=== PATIENT | female | born 1960 | race Caucasian/White ===

== ENCOUNTER 2021-06-05 06:19 | Inpatient (IN) | payer OTHER ==
[~2021-06-05] VITALS: Ht 160 cm; Wt 75.2 kg
[2021-06-05] VITALS (68 sets, daily range): BP systolic 62–177; BP diastolic 25–69
--- NOTE | ~2021-06-05 | EMS ---
[address] [address] EMS Patient Care Report Name: LISS TOLBERT Room #: 241-P ADM IN M.R.#: [id number] Admission: 06/05/21 Attend Phys: Triston Lee MD Discharge: Date of : 58 Report #: [id number] THIS REPORT FOR: //name// Report Transmitted: 06/06/2021 06:16 EMS Care Summary [facility] Incident [id number] @ 06/05/2021 05:38 Incident Location [address] [place] [address] Patient LISS TOLBERT Female, 60 Years 1960 Patient Address [address] [place] [address] Patient History Other,Chronic Obstructive Pulmonary Disease (COPD),Kidney/Renal Failure,Coronary Artery Bypass Graft (CABG),Atrial Fibrillation,Sepsis, Patient Allergies Codeine,Other drug allergy, Patient Medications Other, Chief Complaint "She became bradycardic" Disposition Transported No Lights/[place] Dispatch Reason Diabetic Problem Transported To [facility] Narrative HISTORY: Upon EMS arrival the patient was laying supine in the ED bed with [facility] [address] [place] [address] EMS Patient Care Report Name: LISS TOLBERT Room #: 241-P [facility] IN [place]#: [id number] Admission: 06/05/21 Attend Phys: Triston Lee MD Discharge: Date of : 58 Report #: [id number] staff supporting her respiratory effort via BVM. Staff stated the the patients cardiac alarm had begun to go off, they noted her HR to be in the 30's. They promptly gave her atropine and noted an improvement. They gave her a total of 2mg of atropine prior to EMS arrival. At that time staff stated the patient was unresponsive and has had an improvement in mental status and V/S since they gave atropine. Staff stated the patient had been recannulated yesterday with a 7.5 ET tube. Staff reported the patient had a CABG and became septic after the surgery over the summer and has had a decline in her health since then. Staff stated the patient became apneic and had a pale color change prior to giving atropine. They stated due to her condition she will answer yes or no questions but is confused and usually will not follow any commands. The patient was alert for the first several minutes of EMS care, she would shake her head yes or no but had difficulty speaking. After initial treatment the patient was moved to the MICU and at that time she had a decline in mental status, the patient was unable to be interviewed. Staff was unsure of the patients DNR status and could not produce documentation of a DNR. TREATMENT: V/S monitored, the patients ventilations were assisted via BVM at 15lpm of O2 prior to EMS arrival, EtCO2 filter line was placed, 4/12 lead, TEMP, the patient was moved to the cot and ventilations were not assisted due to the patient having spontaneous respiration???s at a rate of 25 and an increase in mental status, ventilations were assisted again once it was noted the patient had a decrease in respiratory effort at 15lpm of O2 with a pediatric BVM at a rate of 10 respirations a min. Due to the patients condition her PICC line was used to administer medications, 5cc of blood was drawn out of the blue port and then flushed with 5cc of NS prior to administration of medication, 0.5mg of atropine was administered IVFP, patient did not respond to atropine and remained bradycardia and hypotensive, pads were placed anterior/posterior due to the patient???s central line in the upper right chest, S47???s monitor was used to pace he patient, pacing was set at 40mA with a rate fo 70bpm, S47???s monitor gave a ???connect pads??? reading and the monitor did not pace the patient, the cable connections and pads were checked, no obvious issues could be found, cables were switched to M1144???s monitor and pacing was started at 40mA at 70bpm, miliamps were increased in increments of 10mA up to 140mA and never got capture, pacing was discontinued, norepi was hung at 10mcg/min with a drip rate of 75gtts/min, the patient responded appropriately to the medication, BG was taken en route to the ED, report was called into [facility] ED, exams were repeated. TRANSPORT: The patient was moved to the cot via sheet drag without difficulty, she was moved to the ED bed via sheet drag without incident. DESTINATION: The patient was taken to [facility] ED room 12, report was given to nursing staff. [facility] [address] [place] [address] EMS Patient Care Report Name: LISS TOLBERT K[place] Room #: 241-P [facility] IN M.R.#: [id number] Admission: 06/05/21 Attend Phys: Triston Lee MD Discharge: Date of : 58 Report #: [id number] Initial Vitals @06:14P: 59,R: 24,BP: 79/42,EtCO2: 52,SpO2: 100, @06:00P: 69,R: 30,EtCO2: 45, @05:54P: 65,R: 25,BP: 94/50,EtCO2: 46, @06:01P: 53,R: 28,BP: 69/40,EtCO2: 44,SpO2: 91, @06:02P: 48,R: 15,BP: 65/37,EtCO2: 54,SpO2: 86, @05:51P: 65,R: 12,EtCO2: 0, @05:55P: 105,R: 10,EtCO2: 43, @06:15P: 63,R: 10, @PTAP: 59,R: 12,BP: 82/63,GCS: 14,SpO2: 90,Revised Trauma: 11, @05:50P: 64,R: 25,Pain: 0/10,GCS: 14,Temp: 98.5F,SpO2: 86,AK Suspected: false Impression Cardiogenic shock Procedures @05:5012-Lead ECGResponse: UnchangedSucceeded@06:08Response: Unchanged@06:08Response: Unchanged@06:09Response: Unchanged@06:08Response: Unchanged@06:08Response: Unchanged@06:09Response: Unchanged@06:09Response: [address] [address] EMS Patient Care Report Name: LISS TOLBERT Room #: 241-P [facility] IN [place].#: [id number] Admission: 06/05/21 Attend Phys: Triston Lee MD Discharge: Date of : 58 Report #: [id number] Unchanged@06:09Response: Unchanged@06:08Response: Unchanged@06:08Response: Unchanged@06:09Response: Unchanged@PTANormal Saline (.9% NaCl) 5cc () Site: Other Central (PICC, Portacath, Not Listed)Response: Unchanged@06:05Atropine - 0.5 Milligrams (mg) - Intravenous (IV)Response: Unchanged@06:10Norepinephrine - 10 Micrograms (mcg) - Intravenous (IV)Response: Improved@06:07Response: Unchanged@PTAOxygen FlowRate: 15 Device: Bag Valve Mask (BVM) Response: ImprovedSucceeded@05:58Oxygen FlowRate: 15 Device: Bag Valve Mask (BVM) Response: ImprovedSucceeded Timeline EVENT SECURITY OFFICER,Normal Saline (.9% NaCl) 5cc Site: Other Central (PICC, Portacath, Not Listed),Response: Unchanged EVENT SECURITY OFFICER,Oxygen FlowRate: 15 Device: Bag Valve Mask (BVM) Response: ImprovedSucceeded, EVENT SECURITY OFFICER,BP: 82/63 M,PULSE: 59,RR: 12 R,SPO2: 90 Ox,ETCO2: ,BG: ,PAIN: ,GCS: 14, 05:35,Call Received 05:35,Psap Call 05:38,Dispatched 05:39,En Route 05:45,On Scene 05:47,At Patient 05:50,12-Lead ECG,Response: UnchangedSucceeded, 05:50,BP: / M,PULSE: 64,RR: 25 R,SPO2: 86 Ox,ETCO2: ,BG: ,PAIN: 0,GCS: 14, 05:51,BP: / M,PULSE: 65,RR: 12 R,SPO2: Ox,ETCO2: 0 ,BG: ,PAIN: ,GCS: , 05:54,BP: 94/50 M,PULSE: 65,RR: 25 R,SPO2: Ox,ETCO2: 46 ,BG: ,PAIN: ,GCS: , 05:55,BP: / M,PULSE: 105,RR: 10 R,SPO2: Ox,ETCO2: 43 ,BG: ,PAIN: ,GCS: , 05:58,Oxygen FlowRate: 15 Device: Bag Valve Mask (BVM) Response: ImprovedSucceeded, 06:00,BP: / M,PULSE: 69,RR: 30 R,SPO2: Ox,ETCO2: 45 ,BG: ,PAIN: ,GCS: , 06:01,BP: 69/40 M,PULSE: 53,RR: 28 R,SPO2: 91 Ox,ETCO2: 44 ,BG: ,PAIN: ,GCS: , 06:02,BP: 65/37 M,PULSE: 48,RR: 15 R,SPO2: 86 Ox,ETCO2: 54 ,BG: ,PAIN: ,GCS: , 06:04,Depart Scene 06:05,Atropine - 0.5 Milligrams (mg) - Intravenous (IV),Response: Unchanged 06:07,Response: Unchanged 06:08,Response: Unchanged 06:08,Response: Unchanged 06:08,Response: Unchanged 06:08,Response: Unchanged 06:08,Response: Unchanged 06:08,Response: Unchanged 06:09,Response: Unchanged 06:09,Response: Unchanged 06:09,Response: Unchanged 06:09,Response: Unchanged 06:09,Response: Unchanged 06:10,Norepinephrine - 10 Micrograms (mcg) - Intravenous (IV),Response: Improved [facility] [address] [place] [address] EMS Patient Care Report Name: LISS TOLBERT Room #: 241-P ADM IN M.Otilio.#: [id number] Admission: 06/05/21 Attend Phys: Triston Lee MD Discharge: Date of : 58 Report #: [id number] 06:14,BP: 79/42 M,PULSE: 59,RR: 24 R,SPO2: 100 Ox,ETCO2: 52 ,BG: ,PAIN: ,GCS: , 06:15,BP: / M,PULSE: 63,RR: 10 R,SPO2: Ox,ETCO2: ,BG: ,PAIN: ,GCS: , 06:15,At Destination 06:56,Call Closed Disclaimer v1.1 Copyright 2020 [employer] This EMS Care Summary contains data elements from the applicable legal record (which may be displayed differently). It is designed to provide pertinent information for the following purposes: continuity of care, clinical quality, and state data reporting. The complete legal record is available to ED staff and administrators of the receiving hospital in [facility]'s Patient Tracker. All data is provided "as is."
[2021-06-05 06:48] LABS: WBC 5.1 thou/uL (4.0-11.0)
[2021-06-05 06:49] LABS: CALCIUM 8.4 mg/dL (8.5-10.1); CREATININE 2.5 mg/dL (0.6-1.0); MCH 32.5 pg (26.0-34.0); MCV 98.6 fL (80.0-100.0); POTASSIUM 3.8 mmol/L (3.5-5.1); RBC 1.92 mil/uL (4.20-5.00); RDW 19.1 % (10.5-14.5)
[2021-06-05 06:55] LABS: HEMATOCRIT 18.9 % (37.0-47.0); HEMOGLOBIN 6.2 gm/dL (12.0-15.0)
[2021-06-05 07:06] LABS: BE(vivo) 4.7 mmol/L (-2 to +3); HCO3 32.8 mmol/L (22.0-26.0); sO2 70.4 % (92.0-98.0)
[2021-06-05 07:08] LABS: PCO2 80.6 mmHg (35.0-45.0); PO2 45.2 mmHg (80.0-100.0); pH 7.228 (7.360-7.450)
[2021-06-05 08:13] LABS: URINE BLOOD TRACE (Negative); URINE CLARITY CLOUDY; URINE GLUCOSE-RANDOM* NEGATIVE (Negative); URINE KETONES TRACE (Negative); URINE PROTEIN (DIPSTICK) 2+ (Negative)
[2021-06-05 08:16] LABS: ICTOTEST (BILI CONFIRMATORY) Negative (Negative); URINE BILIRUBIN NEGATIVE (Negative); URINE COLOR AMBER; URINE LEUKOCYTES-REFLEX 2+ (Negative); URINE NITRITE-REFLEX POSITIVE (Negative)
[2021-06-05 08:59] LABS: SQUAMOUS 4-10 Moderate /LPF (0-3)
[2021-06-05 09:00] LABS: CASTS None Seen /LPF (None Seen); CRYSTALS None Seen /LPF (None Seen)
[2021-06-05 09:01] LABS: BACTERIA-REFLEX >30 Many /HPF (None Seen); URINE RBC 3-10 Few /HPF (NONE SEEN); URINE WBC-REFLEX >25 Many /HPF (0-5)
[2021-06-05 09:53] LABS: ABSOLUTE NEUTROPHILS 4.3 thou/uL (1.4-8.2); ANISOCYTOSIS 2+
[2021-06-05 09:54] LABS: PLATELET COUNT 75 thou/uL (150-400)
--- NOTE | 2021-06-05 10:13 | NUR ---
VAT ROUNDING ON NEW ADMIT,PICC DRG INTACT DATED 05/31/21. RIGHT CHEST DIALYSIS CATH DATED 04/02/21 WITH MODERATE DEVAN OLD DRIED BLOOD, DRG CHG'D WITH STERILE TECHNIQUE. SITE VERY RED NO DRAINAGE NOTED MODERATE AMT DRIED BLOOD CLEANED FROM SITE. SPOKE WITH PRIMARY RN TO LET MD KNOW ABOUT DATE OF DRG AND SITE APPEARANCE
[2021-06-05 11:29] LABS: BE(vivo) 3.3 mmol/L (-2 to +3); HCO3 28.7 mmol/L (22.0-26.0); PCO2 48.6 mmHg (35.0-45.0); PO2 385.2 mmHg (80.0-100.0); pH 7.389 (7.360-7.450); sO2 99.8 % (92.0-98.0)
[2021-06-05] MEDS ORDERED: PROSOURCE NO CA30 ML PO (12:51)
[2021-06-05] MEDS ORDERED: ASPIRIN EC81 M1 PER TUBE (12:54)
[2021-06-05] MEDS ORDERED: LIPITOR80 MG PER TUBE (12:56)
[2021-06-05] MEDS ORDERED: CARVEDILOL3.125 MG PER TUBE (12:57)
[2021-06-05] MEDS ORDERED: ZETIA10 MG PO (12:59)
[2021-06-05] MEDS ORDERED: FAMOTIDINE 10 M10 MG PO (12:59)
[2021-06-05] MEDS ORDERED: HEPARIN 50500 UNIT/5 SUBQ (13:01)
[2021-06-05] MEDS ORDERED: NOVOLOG100 UNIT/1 SUBQ (13:02)
[2021-06-05] MEDS ORDERED: LEVEMIR100 UNIT/1 SUBQ (13:03)
[2021-06-05] MEDS ORDERED: ONDANSETRON4 MG/2 ML IV PUSH (13:06)
[2021-06-05] MEDS ORDERED: PERCOCET 5-3251 EACH PO (13:07)
[2021-06-05] MEDS ORDERED: ROXICODONE5 M2 PO (13:08)
--- NOTE | 2021-06-05 13:55 | NUR ---
Called Dr. Lee to inform him of CT results. Consult call to Dr. Ch at [phone].
[2021-06-05 14:59] LABS: BE(vivo) 2.9 mmol/L (-2 to +3); HCO3 29.5 mmol/L (22.0-26.0); PCO2 58.7 mmHg (35.0-45.0); PO2 65.9 mmHg (80.0-100.0); pH 7.319 (7.360-7.450); sO2 90.9 % (92.0-98.0)
[2021-06-05 15:06] LABS: HEMATOCRIT 17.3 % (37.0-47.0); HEMOGLOBIN 5.6 gm/dL (12.0-15.0)
--- NOTE | 2021-06-05 15:33 | EKG ---
[address] [address] ELECTROCARDIOGRAM REPORT Name: LISS TOLBERT Room #: 241-P ADM IN M.R.#: [id number] Admission: 06/05/21 Attend Phys: Triston Lee MD Discharge: Date of : 58 Report #: [id number] [facility] ED Test Date: 2021-06-05 Test Time: 06:33:32 Pat Name: LISS TOLBERT Department: Room: 241 Gender: F Nurse Substance Abuse: unknown : 1960 Requested By: Katherine Hughes Order Number: [id number] MD: Ike Ordoñez Measurements Intervals [place] Rate: 60 P: LA: QRS: 97 QRSD: 113 T: 219 QT: 470 QTc: 470 Interpretive Statements NSR Probable anterior infarct, age indeterminate No previous ECG available for comparison Electronically Signed On 06-05-2021 15:32:54 CDT by Ike Ordoñez [email or web address] <ELECTRONICALLY SIGNED> By: Ike Ordoñez MD, FACC 06/05/21 1532 0633 2 Ike Ordoñez MD, FACC /EPI
--- NOTE | 2021-06-05 15:34 | EKG ---
[address] [address] ELECTROCARDIOGRAM REPORT Name: LISS TOLBERT Room #: 241- ADM IN M.R.#: [id number] Admission: 06/05/21 Attend Phys: Triston Lee MD Discharge: Date of : 58 Report #: [id number] [facility] Test Date: 2021-06-05 Test Time: 15:00:32 Pat Name: LISS TOLBERT Department: Room: 241 P Gender: F Quality Measurement Specialist: RAUL : 1960 Requested By: Triston Lee Order Number: [id number] MD: Ike Ordoñez Measurements Intervals [place] Rate: 115 P: 90 MD: 151 QRS: -6 QRSD: 112 T: -49 QT: 263 QTc: 364 Interpretive Statements Sinus tachycardia Atrial premature complexes Consider right atrial enlargement Anterior infarct, old Compared to ECG 06/05/2021 06:33:32 Atrial premature complex(es) now present Junctional rhythm no longer present Myocardial infarct finding still present Electronically Signed On 06-05-2021 15:34:20 CDT by Ike Ordoñez [email or web address] <ELECTRONICALLY SIGNED> By: Ike Ordoñez MD, FACC 06/05/21 1534 1500 1500 Ike Ordoñez MD, FAC /EPI
--- NOTE | 2021-06-05 15:50 | NUR ---
CRITICAL RESULT FOR H/H RECEIVED FROM LAB AT 1505, RN REPORTED TO THE ROOM, THREE PHYSICIANS, , , PRESENT. PRIMARY RN PRESENT IN ROOM, RN LATER VERIFIFED BLOOD PRODUCT WELL
--- NOTE | 2021-06-05 16:03 | NUR ---
VAT CONSULTED FOR CVAD BY DR CRAWFORD, DR ESCOBEDO AT BEDSIDE READY TO PLACE LINE.
[2021-06-05 16:09] LABS: CALCIUM 7.5 mg/dL (8.5-10.1); CREATININE 2.5 mg/dL (0.6-1.0); MAGNESIUM 1.9 mg/dL (1.8-2.4)
[2021-06-05 16:13] LABS: POTASSIUM 2.8 mmol/L (3.5-5.1)
[2021-06-05 16:21] LABS: MCH 32.2 pg (26.0-34.0); MCHC 32.5 % (28.0-37.0); MCV 99.1 fL (80.0-100.0); RBC 1.75 mil/uL (4.20-5.00); WBC 6.1 thou/uL (4.0-11.0)
[2021-06-05 16:22] LABS: PLATELET COUNT 83 thou/uL (150-400); RDW 19.3 % (10.5-14.5)
--- NOTE | 2021-06-05 17:00 | NUR ---
Chart review. Dx: Cardiogenic shock. She was came to ED from [facility]. She has been there off and on since her cardiac surgery at [facility] in march 2021, then had to go back to hospital. Infected inision. Dialysis on MWF. Prior to Hospitals she live at home with her , independent when feeling ok. Manage own medication. Has trach and was on room air prior to being sent here. On the [facility] of [facility]. Code called yesterday here while she in the ICU. Will cont following as needed for dc needs. Called spouse, no answer and no voice mail to leave a message.
--- NOTE | 2021-06-05 17:03 | NUR ---
THIS HAND BOBBIN CLEANER PROVIDED FAMILY SUPPORT TO THE PATIENT'S , MARY, DURING AND AFTER THE CODE BLUE. A VERY DIFFICULT SITUATION. fAMILY LIVES NEAR [place], [place]. BROTHER, A LOGISTICS LEAD, OF MARY IS COMING TO PROVIDE SUPPORT FROM NELLIE PEREA.. I NOTIFIED SECURITY AND NURSING BOWLING BALL ASSEMBLER THAT THEY WOULD BE NEAR AUDITORIUM.
[2021-06-05 17:16] LABS: APTT 42.1 Seconds (24.5-32.8); INR 1.28; PROTIME 13.8 Seconds (10.5-12.1)
--- NOTE | 2021-06-05 17:56 | NUR ---
VAT RECONSULTED TO REPLACE DL WITH TL PICC. DISCUSSED WITH MARKETING RECRUITER'S THAT PICC WAS THERE ON ADMISSION ,ON THE RIGHT SIDE THE TEMPORARY DIALYSIS CATH. SO UNABLE TO DO OTW. LEFT SC LINE PLACED BY DR ESCOBEDO. IF FURTHER ACCESS NEEDED EITHER PIV'S OR PT NEEDS IR INTERVENTION. ADEQUATE ACCESS AT PRESENT
[2021-06-05 18:14] LABS: ABSOLUTE NEUTROPHILS 5.6 thou/uL (1.4-8.2); ANISOCYTOSIS 1+
--- NOTE | 2021-06-05 20:03 | NUR ---
ASSUMED CARE OF PATIENT AT 1845. PRBS INITATED WITH DAY SHIFT RNFaina GUERRERO NOTIFIED ABOUT CRITICAL TROPONINS AND LACTIC ACID. RECIEVED ORDERS FOR SLIDING SCALE INSULIN AND MARY SHOULD IT BE NEEDED FOR ADDITIONAL BLOOD PRESSURE SUPPORT.
--- NOTE | 2021-06-05 20:31 | NUR ---
Patient is not progressing towards goal. Patient arrived to ICU at 1000 on epi gtt for HR and BP. Informed MD Lee and MD Rea of patients CT results, orders were recieved, read back and placed. Consulted cardiothoracic surgery, no orderes given. At 1440 patient became bradycardic and O2 began to decrease, patient become PEA. ROSC was recieved Nolan Murillo Hura at bedside. Dr. Rea placed L radial A-line and L subclavian triple lumen. Dr. Murillo was consulted for left chest drain. IR team came to bedside, 1350mL was drained from patients left chest and drain was placed. Per Dr. Murillo it is okay to use left subclavian TLC for medications other than pressors, Dr. Rea made aware. All Doctors involved in this patients care have been notified of critical results, code blue, and current IV medications. made aware of code blue and was at bedside. Consent for drain placement was recieved by Dr. Francisco, all of Mr. Gaines's questions and concerns were addressed.
--- NOTE | 2021-06-05 20:41 | NUR ---
Rona Chapa and Jesus aware of patient critical labs at 1510 in room at bedside with patient.
[2021-06-05 21:25] LABS: HEMOGLOBIN 8.1 gm/dL (12.0-15.0)
[2021-06-05 21:26] LABS: CREATININE 2.9 mg/dL (0.6-1.0); MAGNESIUM 2.5 mg/dL (1.8-2.4); POTASSIUM 3.5 mmol/L (3.5-5.1)
[2021-06-06] VITALS (32 sets, daily range): BP systolic 67–156; BP diastolic 10–50
[2021-06-06 02:31] LABS: ABSOLUTE NEUTROPHILS 5.6 thou/uL (1.4-8.2); BASOPHILS 0.2 % (0.0-2.0); EOSINOPHILS 0.8 % (0.0-3.0); HEMATOCRIT 24.3 % (37.0-47.0); HEMOGLOBIN 8.1 gm/dL (12.0-15.0); LYMPHOCYTES 0.8 % (24.0-44.0); MCH 31.5 pg (26.0-34.0); MCHC 33.1 g/dL (28.0-37.0); MONOCYTES 1.9 % (1.0-8.0); PLATELET COUNT 75 thou/uL (150-400); POLYS 96.3 % (36.0-66.0); RBC 2.56 mil/uL (4.20-5.00); RDW 19.6 % (10.5-14.5); WBC 5.8 thou/uL (4.0-11.0)
[2021-06-06 02:43] LABS: ALBUMIN 1.7 g/dL (3.4-5.0); CALCIUM 8.4 mg/dL (8.5-10.1); CREATININE 3.1 mg/dL (0.6-1.0); MAGNESIUM 2.4 mg/dL (1.8-2.4); POTASSIUM 3.5 mmol/L (3.5-5.1); TOTAL PROTEIN 5.7 g/dL (6.4-8.2)
[2021-06-06 05:06] LABS: BE(vivo) 5.8 mmol/L (-2 to +3); HCO3 31.8 mmol/L (22.0-26.0); PCO2 55.2 mmHg (35.0-45.0); PO2 78.5 mmHg (80.0-100.0); pH 7.378 (7.360-7.450); sO2 95.1 % (92.0-98.0)
--- NOTE | 2021-06-06 07:32 | NUR ---
ORDERS RECEIVED FOR EVAL AND TREAT HOWEVER Pt HAD CODE BLUE. WILL PLACE ON HOLD AND AWAIT NEW ORDERS WHEN APPROPRIATE
--- NOTE | 2021-06-06 07:34 | NUR ---
VARIANCE NOTE: ORDERS RECEIVED FOR O.T. EVAL AND TREAT. PT HAD CODE BLUE PRIOR AFTERNOON. WILL PLACE PT ON HOLD AND AWAIT NEW ORDERS.
--- NOTE | 2021-06-06 08:30 | NUR ---
BEDSIDE ECHO IN PROGRESS.
--- NOTE | 2021-06-06 09:27 | 2DMMODE ---
[facility] [place] [address] 2 D/M-MODE ECHOCARDIOGRAM Name: LISS TOLBERT Room #: 241-P ADM IN M.R.#: [id number] Admission: 06/05/21 Attend Phys: Triston Lee MD Discharge: Date of : 58 Report #: [id number] THIS REPORT FOR: cc: FAM - Family physician unknown FAM - Family physician unknown Ike Ordoñez MD [facility] ~ APPROVED REPORT Study performed: 06/06/2021 08:05:51 EXAM: Comprehensive 2D, Doppler, and color-flow Echocardiogram Patient Location: ICU Room #: 241 Status: routine BSA: 1.63 HR: 130 bpm BP: 79/44 mmHg Rhythm: Atrial Fibrillation Other Information Study Quality: Good/patient on vent Indications Bradycardia. S/P code X2. Hx: CABG, AVR, COPD. 2D Dimensions RVDd: 37.69 mm IVSd: 11.35 (7-11mm) LVDd: 53.15 mm PWd: 10.63 (7-11mm) Ascending Ao: 31.47 (22-36mm) LVDs: 45.84 (25-40mm) Left Atrium: 48.87 (27-40mm) Aortic Root: 23.80 mm Volumes Left Atrial Volume (Systole) Single Plane 4CH: 63.84 mL Single Plane 2CH: 91.35 mL LA ESV Index: 50.00 mL/m2 Aortic Valve AoV Peak Case.: 2.60 m/s AO Peak Gr.: 28.00 mmHg LVOT Max P.85 mmHg AO Mean Gr.: 17.00 mmHg [facility] [address] [place] [address] 2 D/M-MODE ECHOCARDIOGRAM Name: LISS TOLBERT Room #: 241-P [facility]#: [id number] Admission: 06/05/21 Attend Phys: Triston eLe MD Discharge: Date of : 58 Report #: [id number] AO V2 Mean: 2.09 m/s LVOT Max V: 0.98 m/s AO V2 VTI: 34.00 cm Pulmonary Valve PV Peak Case.: 1.12 m/s PV Peak Gr.: 4.98 mmHg Tricuspid Valve TR Peak Case.: 2.79 m/s RAP Estimate: 15.00 mmHg TR Peak Gr.: 31.41 mmHg PA Pressure: 45.00 mmHg Left Ventricle The left ventricle is normal size. There is normal left ventricular wall thickness. Left ventricular systolic function is severely decreased. LVEF is 25-30%. This study is not technically sufficient to allow evaluation of the LV diastolic function. Right Ventricle Right ventricle is hypokinetic. Atria Left atrium is severely dilated. The right atrium size is normal. Aortic Valve History of aortic valve replacement (manufacture and size unknown). Peak gradient through the valve is 28mmHg and mean of 17mmHg. Trace aortic regurgitation. Mitral Valve There is mitral annular calcification. Mitral valve leaflets are thickened. Mild mitral regurgitation. No evidence of mitral valve stenosis. Tricuspid Valve The tricuspid valve is normal in structure. Moderate tricuspid regurgitation. Estimated PAP is 45mmHg. Pulmonic Valve The pulmonary valve is normal in structure. Mild pulmonic regurgitation. Great Vessels The aortic root is normal in size. The ascending aorta is normal in size. IVC is dilated and collapses <50% with inspiration. [facility] [place] [address] 2 D/M-MODE ECHOCARDIOGRAM Name: LISS TOLBERT Room #: 241-P [facility] IN M.R.#: [id number] Admission: 06/05/21 Attend Phys: Triston Lee MD Discharge: Date of : 58 Report #: [id number] Pericardium There is no pericardial effusion. <Conclusion> Normal left ventricle size/wall thickness Global hypokinesis ejection fraction 25-30% Right ventricle: Normal in size/hypokinetic Severe left atrial enlargement History of aortic valve replacement/appears to be bioprosthetic valve mean gradient of 17 mmHg Mild mitral annular calcification Mild mitral valve insufficiency Moderate tricuspid valve insufficiency Pulmonary systolic pressure estimated 45 mmHg No pericardial effusion Normal aortic root size <ELECTRONICALLY SIGNED> By: Ike Ordoñez MD, [facility] 06/06/21926 6 6 Ike Ordoñez MD, FACC /INF
--- NOTE | 2021-06-06 11:10 | NUR ---
CONVERTED FROM A FIB TO NSR
--- NOTE | 2021-06-06 12:00 | NUR ---
DR RODRIGUEZ IN TO SPEAK WITH THE PATIENT'S FAMILY CONCERNING THE POC. ORDERS NOTED.
--- NOTE | 2021-06-06 12:06 | NUR ---
VAT CONSULTED FOR TL PICC MORE ACCESS NEEDED. L SC NOT IN PROPER PLACEMENT. ROSY BRACHIAL WAS WIDELY PATENT WITH USG. 5FR TL POWER PICC TRIMMED TO 47CM INSERTED TO 2CM EXTERNAL PLACEMENT CONFIRMED WITH 3CG. SHERLOCK USED FOR DIFFICULT DROP OF LINE. PICC RELEASED FOR IMMEDIATE USE PER PROTOCOL
--- NOTE | 2021-06-06 19:45 | NUR ---
PATIENT REMAINS CRITICAL, AND NOT PROGRESSING TOWARDS OUTCOME GOALS. FENTANYL WEANED OFF AND EPI ALSO. MEAN ART PRESSURE 55 TO 58 MMHG. PLEASE REFER TO ASSESSMENTS.
[2021-06-07] VITALS (46 sets, daily range): BP systolic 90–159; BP diastolic 20–63
[2021-06-07 05:15] LABS: HEMATOCRIT 22.6 % (37.0-47.0); HEMOGLOBIN 7.5 gm/dL (12.0-15.0)
[2021-06-07 06:38] LABS: ALBUMIN 1.6 g/dL (3.4-5.0); CALCIUM 7.8 mg/dL (8.5-10.1); CREATININE 3.4 mg/dL (0.6-1.0); PHOSPHORUS 2.9 mg/dL (2.5-4.9)
--- NOTE | 2021-06-07 07:03 | NUR ---
NO ACUTE EVENTS OVERNIGHT. WEANED PRESSORS AND SEDATION TOLERATED.
--- NOTE | 2021-06-07 07:04 | NUR ---
LATE ENTRY FOR 06/05/21 ~1700-WHILE IN ROOM PT BECAME UNRESPONSIVE (HAD BEEN ALERT,TALKING AROUND TRACH,VERY RESTLESS).COLOR ASHEN-NO PULSE.PT IN PEA.CPR STARTED IMMED & CODE BLUE CALLED. ROSC WAS ACHIEVED. PT WENT INTO VFIB SHORT TIME p x 2 SEPERATE EVENTS W IMMED RETURN TO ROSC p DEFIB. ST W PULSE PRESENT. SEE CODE BLUE SHEETS.PHYSICIANS PRESENT DURING ENTIRE EVENTS. IN TO SEE PT BRIEFLY W SCREW MACHINE SETTER PRESENT.MUCH EMO SUPPORT GIVEN.--VW
--- NOTE | 2021-06-07 07:45 | NUR ---
Spoke with Dr. Simmons regarding POC informed him that Dr. Mayorga suggest removing right dialysis cath. MD stated he will speak with family. Spoke with Dr. Ordoñez, per keep amio at 1 mg/min for additional 24hrs.
[2021-06-07 09:23] LABS: BE(vivo) 2.5 mmol/L (-2 to +3); HCO3 28.5 mmol/L (22.0-26.0); PCO2 51.2 mmHg (35.0-45.0); pH 7.364 (7.360-7.450); sO2 94.8 % (92.0-98.0)
[2021-06-07 11:21] LABS: LIPASE < 10 U/L (73-393)
--- NOTE | 2021-06-07 12:13 | NUR ---
Spoke with Dr. Rea regarding patients left cheswt appearance, no orders given at this time. Will continue to monitor. Okay to restart fentanyl for pain control
--- NOTE | 2021-06-07 15:07 | NUR ---
Spoke with GUNJAN Dawkins and informed her that patient heart rate dropped into 50s, amiodarone placed on standby. Currently sinus bradycardia. SUPERSONIC ENGINEER aware of critical troponin as well. No orders at this time.
--- NOTE | 2021-06-07 18:54 | NUR ---
Patient is not progressing towards goal. Patient is still requiring high dose of pressors for blood pressure support. Amiodarone turned off due to bradycardia. Left chest appearance is distended and soft, drain output 120mL for my shift. MD is aware of changes. Spoke with Zhang today, all his questions and concerns were address. Sister in law Padmaja came by to see patient, all of her questions and concerns were address. Plan for 06/08/21 is to replace dialysis catheter and start dialysis.
[2021-06-07 21:13] LABS: HEMATOCRIT 21.8 % (37.0-47.0); HEMOGLOBIN 7.1 gm/dL (12.0-15.0); MCH 30.4 pg (26.0-34.0); MCHC 32.4 g/dL (28.0-37.0); MCV 93.8 fL (80.0-100.0); RBC 2.33 mil/uL (4.20-5.00); RDW 19.8 % (10.5-14.5)
[2021-06-07 21:17] LABS: WBC 22.2 thou/uL (4.0-11.0)
--- NOTE | 2021-06-07 21:55 | NUR ---
ASSUMED CARE OF PATIENT AT 1900. PATIENT CONTINUES TO BE HYPOTENSIVE AND BRADYCARDIC. EPI RESUMED. DR RODRIGUEZ UPDATED AT 2144. ORDERS FOR ALBUMIN, FLUID BOLUS AND DOPAMINE OBTAINED. REMINDED DR RODRIGUEZ THAT THE LAST TIME PATIENT WAS ON DOPAMINE SHE WENT INTO V-FIB. HE FEELS THAT SHE WILL BE FINE AND WANTS THE PATIENT ON DOPAMINE. PATIENT NOT PROGRESSING TOWARDS POC GOALS.
[2021-06-08] VITALS (45 sets, daily range): BP systolic 99–143; BP diastolic 37–62
[2021-06-08 05:52] LABS: HEMOGLOBIN 7.6 gm/dL (12.0-15.0); MCHC 33.1 g/dL (28.0-37.0); MCV 93.8 fL (80.0-100.0); PLATELET COUNT 25 thou/uL (150-400); RBC 2.45 mil/uL (4.20-5.00); RDW 20.1 % (10.5-14.5); WBC 18.9 thou/uL (4.0-11.0)
[2021-06-08 06:24] LABS: ALBUMIN 1.7 g/dL (3.4-5.0); CALCIUM 7.6 mg/dL (8.5-10.1); CREATININE 3.4 mg/dL (0.6-1.0); MAGNESIUM 2.2 mg/dL (1.8-2.4); POTASSIUM 3.6 mmol/L (3.5-5.1); TOTAL PROTEIN 5.2 g/dL (6.4-8.2)
[2021-06-08 06:51] LABS: ABSOLUTE NEUTROPHILS 18.5 thou/uL (1.4-8.2)
[2021-06-08 06:52] LABS: ANISOCYTOSIS 2+; PLATELET ESTIMATE MARKEDLY DECREASED; POIKILOCYTOSIS 1+
[2021-06-08 08:57] LABS: INR 1.17; PROTIME 12.7 Seconds (10.5-12.1)
--- NOTE | 2021-06-08 14:21 | NUR ---
Discussed during unit rounds and los with the hospitalist. trach, with vent support. nutritional support. Family has been updated from the hospitalist. Possible will have dialysis today. No anticipated dc, and no anticipated dc over the weekend. Will cont. following as needed.
[2021-06-08 18:52] LABS: CALCIUM 7.2 mg/dL (8.5-10.1); POTASSIUM 3.4 mmol/L (3.5-5.1)
[2021-06-08 21:20] LABS: HEMATOCRIT 23.5 % (37.0-47.0); HEMOGLOBIN 7.7 gm/dL (12.0-15.0); MCH 30.6 pg (26.0-34.0); MCHC 32.8 g/dL (28.0-37.0); MCV 93.4 fL (80.0-100.0); RBC 2.52 mil/uL (4.20-5.00); WBC 20.6 thou/uL (4.0-11.0)
[2021-06-09] VITALS (21 sets, daily range): BP systolic 107–146; BP diastolic 33–54
[2021-06-09 04:45] LABS: BE(vivo) 3.4 mmol/L (-2 to +3); HCO3 27.3 mmol/L (22.0-26.0); PCO2 38.2 mmHg (35.0-45.0); PO2 78.3 mmHg (80.0-100.0); pH 7.472 (7.360-7.450); sO2 96.3 % (92.0-98.0)
[2021-06-09 05:24] LABS: HEMOGLOBIN 6.8 gm/dL (12.0-15.0)
[2021-06-09 05:26] LABS: HEMATOCRIT 20.1 % (37.0-47.0); MCH 31.6 pg (26.0-34.0); MCV 92.9 fL (80.0-100.0); RBC 2.16 mil/uL (4.20-5.00); RDW 19.5 % (10.5-14.5); WBC 16.3 thou/uL (4.0-11.0)
[2021-06-09 05:42] LABS: ALBUMIN 1.8 g/dL (3.4-5.0); CALCIUM 7.6 mg/dL (8.5-10.1); MAGNESIUM 1.8 mg/dL (1.8-2.4); POTASSIUM 3.4 mmol/L (3.5-5.1); TOTAL PROTEIN 5.3 g/dL (6.4-8.2)
[2021-06-09 09:08] LABS: HEPATITIS B SURFACE AG Negative (Negative)
--- NOTE | 2021-06-09 16:12 | NUR ---
POSITIVE BLOOD CULTURES CALLED BY LAB. GRAM POSITIVE COCCI - THIS RN PAGED DR. GRAY TO NOTIFIY OF POSITIVE CULTURES.
--- NOTE | 2021-06-09 17:18 | NUR ---
ASSUMED CARE OF PATIENT AT 0600. VENT SETTINGS WERE 16/450/.50 +5. DURING MY SHIFT I WAS ABLE TO WEAN HER FIO2 TO 40% AND SHE IS TOLERATING WELL. HER SATURATION HAS REMAINED ANYWHERE FROM 98-100% WITH THE CHANGE. SHE HAS GOTTEN ALL OF BREATHING TREATMENT AND SHOWING NO SIGNS OF DISTRESS.
[2021-06-09 18:06] LABS: HEMOGLOBIN 8.1 gm/dL (12.0-15.0)
[2021-06-09 18:09] LABS: HEMATOCRIT 24.4 % (37.0-47.0); OBSERVED RETIC COUNT 0.64 % (0.6-2.6)
[2021-06-09 18:26] LABS: % SATURATION 65 % (20-39); IRON 79 ug/dL (50-170); TIBC 122 ug/dL (250-450)
[2021-06-09 19:27] LABS: FOLIC ACID 10.4 ng/mL (8.6-58.9)
--- NOTE | 2021-06-09 19:38 | NUR ---
ASSUMED CARE OF PATIENT AT 1330. TITRATED LEVOPHED FROM 5MCG TO 3 MCG. REMAINS ON FENTANYL AND VERSED FOR LIGHT SEDATION. PATIENT MOVING ARMS AND OPENS EYES AT TIME, DOES NOT FOLLOW COMMANDS. SINUS ADELA ON THE MONITOR. 1 UNIT PLT AND 1 UNIT PRBC INFUSED. HGB 8.1 POST. L-RADIAL AMARILIS INTACT. TUBE FEEDINGS INFUSING AT 10CC/HR. 250 Q6HR WATER FLUSHES. 35CC RESUIDUAL NOTED. WILL CONTINUE TO FOLLOW POC.
[2021-06-10] VITALS (26 sets, daily range): BP systolic 116–149; BP diastolic 37–53
[2021-06-10 03:25] LABS: INR 1.08; PROTIME 11.7 Seconds (10.5-12.1)
[2021-06-10 03:27] LABS: MCV 90.7 fL (80.0-100.0)
[2021-06-10 03:29] LABS: HEMATOCRIT 24.5 % (37.0-47.0); HEMOGLOBIN 8.2 gm/dL (12.0-15.0); MCH 30.4 pg (26.0-34.0); MCHC 33.5 g/dL (28.0-37.0); RBC 2.71 mil/uL (4.20-5.00); WBC 14.8 thou/uL (4.0-11.0)
[2021-06-10 03:34] LABS: ALBUMIN 1.7 g/dL (3.4-5.0); CALCIUM 7.8 mg/dL (8.5-10.1); CREATININE 2.4 mg/dL (0.6-1.0); POTASSIUM 3.8 mmol/L (3.5-5.1); TOTAL BILIRUBIN 0.8 mg/dL (0.2-1.0); TOTAL PROTEIN 5.5 g/dL (6.4-8.2)
[2021-06-10 04:55] LABS: BE(vivo) 1.1 mmol/L (-2 to +3); HCO3 24.4 mmol/L (22.0-26.0); pH 7.486 (7.360-7.450)
--- NOTE | 2021-06-10 08:25 | HC ---
[facility] [place] [address] CONSULTATION Name: LISS TOLBERT Room #: 241-P ADM IN M.R.#: [id number] Admission: 06/05/21 Attend Phys: Triston Lee MD Discharge: Date of : 58 Report #: [id number] THIS REPORT FOR: cc: FAM - Family physician unknown FAM - Family physician unknown Edwin Hughes MD ~ cc: Salazar Mayorga MD, Po Wiley MD [facility], Valery Valladares MD REQUESTING PHYSICIAN: Dr. Triston Lee. REASON FOR CONSULTATION: Thrombocytopenia. HISTORY OF PRESENT ILLNESS: The patient is a 60-year-old female with a complex history that evidently began this summer with CABG and aortic valve replacement at [facility]. Unfortunately, she developed a sternal wound. According to the chart, has been in LTACs, back to the hospital at [facility] and LTACs, now here at [place]. She was sent here because of what sounded like she may have had a code type situation. Here on admission, her platelets were 75,000 on the 06/05; on the , they were 34,000; on the , 25,000, she got a unit of platelets; on the , they were 18,000, I believe she got another unit of platelets. We were not really sure what all medication she was on at the other facility before admission. I did look at the chart records. I did not see any specific medication administered though I did see heparin mentioned at one point. I did not see any mention of thrombocytopenia at the outside facility though I do not know if that is accurate or accurately reflects that she did not have a low platelet counts there. PAST MEDICAL HISTORY: Her past history appears to be notable for the recent CABG with AVR in 03/2021, the subsequent sternal wound with debridement and wound care, supposedly dilated cardiomyopathy with an EF of 25-30%, history of acute on chronic kidney illness, history of aspiration pneumonia, history of respiratory failure, history of diabetes, history of COPD, history of peripheral arterial disease, history of hyperlipidemia. FAMILY AND SOCIAL HISTORY: Noncontributory. There was mention of smoking, but supposedly the patient quit about 20 years ago. MEDICATIONS: At this time currently include hydrocortisone 250 mg q. 8, daptomycin 600 mg post-dialysis, amiodarone 450 mg, I am not quite sure of the frequency of that dose, ceftaroline fosamil 200 mg q. 12, ipratropium/albuterol 3 mL respiratory therapy q. 4, insulin 10 units daily subcutaneous, pantoprazole 40 daily, chlorhexidine mouth rinse, insulin sliding scale, norepinephrine p.r.n., phenylephrine p.r.n. Heparin had been discontinued on the . PHYSICAL EXAMINATION: [facility] [address] [place] [address] CONSULTATION Name: LISS TOLBERT Room #: 241-P ADM IN M.R.#: [id number] Admission: 06/05/21 Attend Phys: Triston Lee MD Discharge: Date of : 58 Report #: [id number] GENERAL: The patient is a female in the ICU on a ventilator with multiple IVs, does have a PICC line in the left arm, does have a wound drain in the chest. She is I believe on meds and is not arousable to touch or to call her name. No obvious ecchymosis, bleeding from her nares or mouth or from IV sites. VITAL SIGNS: Reported height is 5 feet 3 inches or 160 cm, weight reported 167 pounds or 76 kilograms. Recent blood pressure is 123/36, O2 sat 99%, respirations 14, temperature 99.3. LUNGS: Slightly coarse centrally. HEART: Regular rate. ABDOMEN: Slightly protuberant. No definite masses. EXTREMITIES: Without clubbing, cyanosis. There is some slight swelling. LABORATORY RESULTS: Also notable here for transaminases that were elevated, now declined, AST now 91, ALT now 114, total bilirubin 1.0, alkaline phosphatase 140. Note that creatinine recently 2 noted on admit. INR 1.17 with aPTT 42.1. Also, note fibrinogen 380. Imaging of the chest and pelvis did not reveal any hepatosplenomegaly or organomegaly. ASSESSMENT AND PLAN: 1. Thrombocytopenia with platelets originally 75,000 on admit, now down to 18,000, multifactorial, most likely related to sepsis. We will check on number of things including nutritional things such as iron, B12, folate. We will also check for production with immature platelet fraction. We will check for heparin antibody. We will ask for peripheral smear. Support, would suggest keeping platelet counts elevated about 15,000 or 20,000 with transfusions. No obvious clots at this time. 2. Anemia. Same workup as above. Would suggest transfusing to keep hemoglobin above 7. 3. Sepsis, multiple etiologies to be considered. Defer to Infectious Disease and others, on multiple antiinfectives. 4. History of CABG and AVR at [facility]. Defer to others. 5. Acute on chronic illness with possible dialysis. Defer to Nephrology. 6. Diabetes mellitus, insulin and management per others. 7. Chronic obstructive pulmonary disease. Aerosols per others. 8. Respiratory failure, mechanical ventilation will be available and continue following. <ELECTRONICALLY SIGNED> By: Edwin Hughes MD 06/10/21 0825 1002 2130 Edwin Hughes MD /nt
[2021-06-10 14:15] LABS: HEMATOCRIT 22.9 % (37.0-47.0); HEMOGLOBIN 7.6 gm/dL (12.0-15.0); MCH 30.3 pg (26.0-34.0); MCHC 33.4 g/dL (28.0-37.0); MCV 90.8 fL (80.0-100.0); RBC 2.52 mil/uL (4.20-5.00); RDW 19.9 % (10.5-14.5); WBC 13.4 thou/uL (4.0-11.0)
[2021-06-11] VITALS (64 sets, daily range): BP systolic 114–172; BP diastolic 34–117
[2021-06-11 04:35] LABS: BE(vivo) 0.7 mmol/L (-2 to +3); HCO3 25.2 mmol/L (22.0-26.0); PCO2 39.9 mmHg (35.0-45.0); PO2 65.7 mmHg (80.0-100.0); pH 7.419 (7.360-7.450); sO2 93.3 % (92.0-98.0)
[2021-06-11 05:05] LABS: MAGNESIUM 2.2 mg/dL (1.8-2.4); PHOSPHORUS 3.5 mg/dL (2.6-4.7)
[2021-06-11 05:10] LABS: ALBUMIN 1.7 g/dL (3.4-5.0); CALCIUM 8.2 mg/dL (8.5-10.1); CREATININE 2.8 mg/dL (0.6-1.0); POTASSIUM 4.1 mmol/L (3.5-5.1); TOTAL BILIRUBIN 0.7 mg/dL (0.2-1.0); TOTAL PROTEIN 5.5 g/dL (6.4-8.2)
[2021-06-11 05:25] LABS: ABSOLUTE NEUTROPHILS 11.6 thou/uL (1.4-8.2); BASOPHILS 0.1 % (0.0-2.0); HEMOGLOBIN 7.9 gm/dL (12.0-15.0); LYMPHOCYTES 3.6 % (24.0-44.0); MONOCYTES 2.7 % (1.0-8.0); POLYS 93.6 % (36.0-66.0); RBC 2.58 mil/uL (4.20-5.00)
[2021-06-11 05:27] LABS: HEMATOCRIT 23.6 % (37.0-47.0); MCH 30.5 pg (26.0-34.0); MCHC 33.4 g/dL (28.0-37.0); MCV 91.3 fL (80.0-100.0); RDW 19.7 % (10.5-14.5); WBC 12.3 thou/uL (4.0-11.0)
[2021-06-11 05:30] LABS: PLATELET COUNT 17 thou/uL (150-400)
--- NOTE | 2021-06-11 07:54 | HC ---
[facility] [address] CONSULTATION Name: LISS TOLBERT Room #: 241-P ADM IN M.R.#: [id number] Admission: 06/05/21 Attend Phys: Triston Lee MD Discharge: Date of : 58 Report #: [id number] THIS REPORT FOR: cc: FAM - Family physician unknown FAM - Family physician unknown Valery Valladares MD ~ DATE OF SERVICE: 06/06/2021 REASON FOR CONSULTATION: Acute kidney injury, dialysis dependent. HISTORY OF PRESENT ILLNESS: This is a 60-year-old who was transferred from the [facility] LTAC facility with hypotension, bradycardia. She then had cardiovascular arrest, requiring defibrillator shocks and epinephrine along with initiation of vasopressor therapy. The patient is well known to me from her [facility] facility. She is status post CABG, bioprosthetic aortic valve. This was complicated by sternal wound infection and osteomyelitis. This required a myocutaneous flap. She then was transferred to LTAC with a tracheostomy, PEG tube. We were consulted to manage her acute kidney injury and requirement for dialysis in that facility. She continues to have no signs of renal recovery. We were consulted again in this facility to manage her acute kidney injury, dialysis dependence. She is requiring 3 pressors this morning. She had a mass on her left pectoral area that was drained with 1300 mL of blood coming out of that drain. REVIEW OF SYSTEMS: Unobtainable given the fact that the patient is currently intubated and sedated. PAST MEDICAL HISTORY: Obtained from the medical chart. 1. CABG, post-sternal wound infection and sternotomy. 2. Acute kidney injury requiring dialysis. 3. PEG tube. 4. Tracheostomy. 5. Post-arrest. 6. Diabetes mellitus. 7. COPD. 8. Hyperlipidemia. FAMILY HISTORY: Unobtainable given the patient's current mental status. SOCIAL HISTORY: Unobtainable given the patient's current mental status. CURRENT INPATIENT MEDICATIONS: Include the followin. Amiodarone. 2. Epinephrine. 3. Fentanyl. 4. Hydrocortisone. [address] [address] CONSULTATION Name: DIDILISS M Room #: 241-P [facility] IN [facility].#: [id number] Admission: 06/05/21 Attend Phys: Triston Lee MD Discharge: Date of : 58 Report #: [id number] 5. Midazolam. 6. Norepinephrine. PHYSICAL EXAMINATION: GENERAL: She is maintained on 3 pressors. She is sedated. VITAL SIGNS: Blood pressure is 79/44. HEAD AND NECK: Tracheostomy in place. CHEST: Decreased air entry bilaterally. CARDIOVASCULAR: No rub. ABDOMEN: Soft. EXTREMITIES: Lower extremities, no edema. There is a drain coming from the left breast area with bloody content. Swelling is better than yesterday post-drainage. ASSESSMENT, IMPRESSION AND PLAN: 1. Acute kidney injury requiring dialysis. 2. Septic shock. 3. Respiratory failure. 4. Post-cardiac arrest. I had a lengthy discussion with the yesterday. I thoroughly explained for him that this patient is better served if she gets transferred back to the facility where this whole thing started which is [facility]. As for now, we will continue to monitor her labs and support her with the dialysis needs. Given her current hemodynamics and requirement for 3 pressors, I will hold on dialysis today as the patient is very unstable. Continue with the current hemodynamic support. Continue with the antibiotic. Continue with the vent support. Overall, very poor prognosis. <ELECTRONICALLY SIGNED> By: Valery Valladares MD 06/11/21 [phone] 0659 Valery Valladares MD /nt
--- NOTE | 2021-06-11 10:17 | HC ---
[facility] [place] [address] [place] [address] CONSULTATION Name: LISS TOLBERT Room #: 241-P ADM IN M.R.#: [id number] Admission: 06/05/21 Attend Phys: Triston Lee MD Discharge: Date of : 58 Report #: [id number] THIS REPORT FOR: cc: FAM - Family physician unknown FAM - Family physician unknown Jesse Ch MD ~ DATE OF SERVICE: 06/05/2021 We were asked to see the patient by Dr. Lee. HISTORY OF PRESENT ILLNESS: The patient is a 60-year-old brought over from [facility] this morning. The patient has a history of coronary artery bypass and aortic valve replacement in March of this year at a different institution. The patient appears to have been readmitted in April with sepsis due to infected sternal wound. According to the record, the wound grew out E. coli and pseudomonas. The patient was treated with sternal resection and pectoralis flap. The patient was at [facility] until this morning with the tracheostomy, but not on oxygen. The patient had an episode of bradycardia with heart rate to 40 and was unresponsive and brought over to this Emergency Room emergently. Since admission, the patient has been started on epinephrine drip for low heart rate and blood pressure. CT scan of the chest and abdomen were done. The CT reveals sternal resection as well as fluid collection in the left chest, most likely related to the pectoralis flap. Small pleural effusions are noted bilaterally. This appears to be the reason for our involvement. Other data is gleaned from the chart as the patient has a tracheostomy in place and is not speaking. The patient is on a ventilator, but not yet sedated. PAST MEDICAL HISTORY: As mentioned, significant for CABG and aortic valve replacement and sternal wound infection. ALLERGIES: According to the chart, THE PATIENT IS ALLERGIC TO CODEINE and BUTALBITAL. REVIEW OF SYSTEMS: I have no reason to differ from what is in the chart. PHYSICAL EXAMINATION: VITAL SIGNS: As we see the patient, temperature is 36.3, heart rate is 78 sinus, respiratory rate 17, blood pressure 110/70, O2 sat 100 on 60% oxygen. HEENT: No scleral icterus. Conjunctivae are pale. NECK: No specific bruit is audible, but the patient has loud rhonchi. No [facility] [address] [place] [address] CONSULTATION Name: LISS TOLBERT Room #: [facility] IN ..#: [id number] Admission: 06/05/21 Attend Phys: Triston Lee MD Discharge: Date of : 58 Report #: [id number] masses are palpable. CHEST: Rhonchi throughout. The left anterior chest is protuberant related to what appears to be subcutaneous or submuscular fluid. Incision is intact, however, with no evidence of cellulitis or drainage. ABDOMEN: Tense from some respiratory distress. EXTREMITIES: Cool. No clubbing, cyanosis or edema. SKIN: No obvious rash or infection. NEUROLOGIC: No obvious motor or sensory dysfunction. ASSESSMENT AND PLAN: From the cardiac surgical point of view, the sternal incision appears to be healing and there may be a seroma beneath it, but this may be an artifact of the pectoralis flap and not necessarily pathologic. Similarly, any mediastinal fluid would be in continuity with this. Unless the patient has overt evidence for sepsis or tamponade, there is no particular urgency about draining this. In any event, we do not have a plastic surgeon at this institution and I am hesitant to intervene with the pectoralis flap as it stands. I will defer to the hospitalists regarding other aspects of the patient's care and wonder if a more complete approach could not be accomplished at a different institution. It is a privilege to participate in this challenging patient's care. Thank you for the consult. <ELECTRONICALLY SIGNED> By: Jesse Ch MD 06/11/21 1017 [id number] 1624 Jesse Ch MD /nt
--- NOTE | 2021-06-11 14:28 | NUR ---
Per MD review in AM LOS meeting; patient remains on the vent with 30% FI02 and 5 of PEEP and weaning continues. Concern over returning to [facility] discussed and attending reaching out to family to discuss once more stable to return to [facility] as ID MD can follow patient there for continuity of care. Family continues to be updated on medical progress by the attending. As care progresses and next of level of care determined with attending CM will follow for discharge needs.
--- NOTE | 2021-06-11 18:34 | NUR ---
patient slowly progressing towards the plan of care as evidenced by no longer needing amiodarone or precedex gtt. patient's came to visit today.
[2021-06-12] VITALS (22 sets, daily range): BP systolic 117–131; BP diastolic 36–47
[2021-06-12 03:34] LABS: HEMATOCRIT 24.4 % (37.0-47.0); HEMOGLOBIN 8.1 gm/dL (12.0-15.0); MCH 30.3 pg (26.0-34.0); MCHC 33.2 g/dL (28.0-37.0); MCV 91.2 fL (80.0-100.0); RBC 2.68 mil/uL (4.20-5.00); RDW 19.3 % (10.5-14.5); WBC 14.1 thou/uL (4.0-11.0)
[2021-06-12 05:02] LABS: ALBUMIN 1.8 g/dL (3.4-5.0); CALCIUM 8.1 mg/dL (8.5-10.1); CREATININE 1.9 mg/dL (0.6-1.0); MAGNESIUM 1.8 mg/dL (1.8-2.4); POTASSIUM 3.7 mmol/L (3.5-5.1); TOTAL BILIRUBIN 0.9 mg/dL (0.2-1.0); TOTAL PROTEIN 5.7 g/dL (6.4-8.2)
[2021-06-12 05:58] LABS: BE(vivo) 2.7 mmol/L (-2 to +3); HCO3 25.7 mmol/L (22.0-26.0); PCO2 33.2 mmHg (35.0-45.0); PO2 67.6 mmHg (80.0-100.0); pH 7.507 (7.360-7.450); sO2 95.2 % (92.0-98.0)
--- NOTE | 2021-06-12 12:00 | NUR ---
ORDER NOTED TO REPLACE LINES. A #6F TRIPLE LUMEN CENTRAL LINE WAS PLACED PER HOSPITAL POLICY AFTER A BEDSIDE TIMEOUT WAS COMPLETED. THE 25CM LINE WAS ADVANCED WITHOUT DIFFICULTY TO 5CM EXTERNAL. LINE WAS SECURED AND A STAT CHEST XRAY CONFIRMED THE LINE TO BE IN THE MIDSVC AND IN GOOD POTION FOR USE. THE LEFT UPPER ARM PICC IS TO BE REMOVED
--- NOTE | 2021-06-12 12:35 | NUR ---
Per MD review in AM LOS meeting; patient remains on the vent with 30% FI02 and 5 of PEEP and weaning continues. Concern over returning to [facility] discussed with family and attending and family now in agreement to return to [facility] at discharge. Currently per attending the patient is awake on the vent and looking to wean down to an eventual trach collar. Once deemed stable for discharge the plan will be to return to [facility]. Spouse Zhang Gaines at [phone]. Patient continues to slowly progress to plan of care and is no longer needing amiodarone or precedex gtt at this time. Patient's spouse remains for visitation and being updated at bedside. CM will continue to follow and once deemed stable for LTAC transfer will assure referral information is sent timely.
--- NOTE | 2021-06-12 16:09 | NUR ---
PT TRACH/VENT. PT WILL NODD YES OR NO WHEN RESPONDING TO QUESTIONS. VSS, TUBE FEEDING PER PEG. RATE OF [address]ANG[address] PER DR REQUEST. HAMILTON AND DRAIN UNDER LEFT ARM TO DD. PT DENEIS PAIN. TEMPORARY DIALYSIS CATH AND PICC LINE REPLACED TODAY. SPOKE WITH PT THIS MORNING TO UPDAE ON CARE. PT SLOWLY PROGRESSING IVAS POC GOALS.
[2021-06-13] VITALS (23 sets, daily range): BP systolic 104–177; BP diastolic 35–66
--- NOTE | 2021-06-13 03:17 | NUR ---
ASSUMED CARE OF PATIENT AT 1900. PATIENT AWAKE, FOLLOWING COMMANDS, ABLE TO ANSWER YES/NO QUESTIONS. DENIES PAIN, REQUESTS SUCTIONING. SMALL BM THIS SHIFT. REMAINS OFF ALL PRESSORS. MINIMAL DRAINAGE FROM TUBE IN LEFT BREAST.
[2021-06-13 05:00] LABS: HEMATOCRIT 21.7 % (37.0-47.0); HEMOGLOBIN 7.4 gm/dL (12.0-15.0); MCH 31.2 pg (26.0-34.0); MCV 91.8 fL (80.0-100.0); RBC 2.37 mil/uL (4.20-5.00); RDW 19.3 % (10.5-14.5); WBC 13.3 thou/uL (4.0-11.0)
[2021-06-13 05:31] LABS: ALBUMIN 1.5 g/dL (3.4-5.0); CALCIUM 7.8 mg/dL (8.5-10.1); CREATININE 2.3 mg/dL (0.6-1.0); MAGNESIUM 1.9 mg/dL (1.8-2.4); PHOSPHORUS 3.6 mg/dL (2.5-4.9); POTASSIUM 3.5 mmol/L (3.5-5.1)
--- NOTE | 2021-06-13 12:16 | 2DMMODE ---
[facility] [place] [place] [address] 2 D/M-MODE ECHOCARDIOGRAM Name: LISS TOLBERT Room #: 241-P ADM IN M.R.#: [id number] Admission: 06/05/21 Attend Phys: Triston Lee MD Discharge: Date of : 58 Report #: [id number] THIS REPORT FOR: cc: FAM - Family physician unknown FAM - Family physician unknown Ike Ordoñez MD [facility] ~ APPROVED REPORT Study performed: 06/13/2021 10:20:20 EXAM: Comprehensive 2D, Doppler, and color-flow Echocardiogram Patient Location: ICU Room #: 241 Status: routine BSA: 1.85 HR: 59 bpm BP: 131/46 mmHg Rhythm: Bradycardia Other Information Study Quality: Technically Limited Indications Congestive Heart Failure AVR 2D Dimensions LVOT Diam: 20.69 (18-24mm) IVC: 18.00 mm Aortic Valve AoV Peak Case.: 3.19 m/s AO Peak Gr.: 40.80 mmHg LVOT Max P.47 mmHg AO Mean Gr.: 19.08 mmHg LVOT Mean P.25 mmHg AO V2 Mean: 1.96 m/s LVOT Max V: 1.06 m/s AO V2 VTI: 74.31 cm LVOT Mean V: 0.69 m/s PADDY (VTI): 1.24 cm2 LVOT V1 VTI: 27.50 cm PADDY Vmax: 1.11 cm2 SV (LVOT): 92.46 mL Tricuspid Valve TR Peak Case.: 3.00 m/s TR Peak Gr.: 36.00 mmHg PA Pressure: 46.00 mmHg [facility] [address] [place] [address] 2 D/M-MODE ECHOCARDIOGRAM Name: LISS TOLBERT Room #: 241-P ADM IN .R.#: [id number] Admission: 06/05/21 Attend Phys: Triston Lee MD Discharge: Date of : 58 Report #: [id number] Left Ventricle The left ventricle is normal size. There is normal left ventricular wall thickness. Left ventricular ejection fraction is moderately decreased. LVEF is 35-40%. Right Ventricle The right ventricle is normal size. The right ventricular systolic function is normal. Atria Left atrium is dilated. Right atrium is at the upper limits of normal. Aortic Valve Prosthetic aortic valve. Peak gradient 41mmHg, mean gradient 19mmHg. No aortic regurgitation is present. Mitral Valve The mitral valve is normal in structure. There is mitral annular calcification. Mild mitral regurgitation. No evidence of mitral valve stenosis. Tricuspid Valve The tricuspid valve is normal in structure. There is mild tricuspid regurgitation. Estimated PAP 46 mmHg. There is moderate pulmonary hypertension. Pulmonic Valve The pulmonary valve is normal in structure. There is no pulmonic valvular regurgitation. Great Vessels The aortic root is normal in size. IVC is normal in size and collapses <50% with inspiration. Pericardium There is no pericardial effusion. <Conclusion> Normal left ventricular size/wall thickness Ejection fraction 35-40%/improved from the last echocardiogram last week EF then of 25% Normal right ventricle size/function Left atrium mildly dilated Bioprosthetic aortic valve with a mean gradient of 20 mmHg [facility] [address] [place] [address] 2 D/M-MODE ECHOCARDIOGRAM Name: LISS TOLBERT Room #: 241-P [facility] IN ..#: [id number] Admission: 06/05/21 Attend Phys: Triston Lee MD Discharge: Date of : 58 Report #: [id number] Mild mitral annular calcification without stenosis Mild mitral valve insufficiency Mild tricuspid valve insufficiency Pulmonary systolic pressure estimated at 46 mmHg No pericardial effusion Normal aortic root size. <ELECTRONICALLY SIGNED> By: Ike Ordoñez MD, FACC 06/13/211214 14 14 Ike Ordoñez MD, FACC /INF
--- NOTE | 2021-06-13 14:59 | NUR ---
faxed updates to [facility], possible able to move out if icu today.
--- NOTE | 2021-06-13 17:32 | NUR ---
Patient progressing towards plan of care as evidenced by more periods of alertness, following commands, oxygenation saturaturations >92. She has expressed pain intermittently throughout the day with some relief from prn pain medication.
[2021-06-14] VITALS (22 sets, daily range): BP systolic 117–140; BP diastolic 38–66
--- NOTE | 2021-06-14 04:37 | NUR ---
ASSUMED CARE OF PATIENT AT 1900. ALERT AND ABLE TO FOLLOW COMMANDS AND ANSWER YES/NO QUESTIONS. REMAINS OFF ALL PRESSORS. BATH GIVEN, PICTURE OF SACRUM DONE AT THIS TIME. DENIES PAIN. PROGRESSING SLOWLY TOWARDS POC GOALS.
[2021-06-14 05:43] LABS: HEMOGLOBIN 8.1 gm/dL (12.0-15.0); MCHC 33.6 g/dL (28.0-37.0); MCV 92.2 fL (80.0-100.0); PLATELET COUNT 38 thou/uL (150-400); RDW 18.7 % (10.5-14.5); WBC 20.6 thou/uL (4.0-11.0)
[2021-06-14 06:33] LABS: ALBUMIN 1.5 g/dL (3.4-5.0); CALCIUM 7.9 mg/dL (8.5-10.1); CREATININE 1.7 mg/dL (0.6-1.0); POTASSIUM 3.8 mmol/L (3.5-5.1); TOTAL BILIRUBIN 0.8 mg/dL (0.2-1.0); TOTAL PROTEIN 5.1 g/dL (6.4-8.2)
[2021-06-14 09:40] LABS: ABSOLUTE NEUTROPHILS 19.8 thou/uL (1.4-8.2); ANISOCYTOSIS 2+
--- NOTE | 2021-06-14 17:53 | NUR ---
PATIENT PROGRESSING TOWARDS THE PLAN OF CARE.
[2021-06-15] VITALS (45 sets, daily range): BP systolic 118–176; BP diastolic 29–88
[2021-06-15 05:11] LABS: HEMATOCRIT 22.7 % (37.0-47.0); HEMOGLOBIN 7.5 gm/dL (12.0-15.0); MCH 30.6 pg (26.0-34.0); MCHC 33.1 g/dL (28.0-37.0); MCV 92.7 fL (80.0-100.0); RBC 2.45 mil/uL (4.20-5.00); RDW 19.4 % (10.5-14.5); WBC 16.6 thou/uL (4.0-11.0)
[2021-06-15 05:25] LABS: CALCIUM 8.1 mg/dL (8.5-10.1); POTASSIUM 3.9 mmol/L (3.5-5.1)
--- NOTE | 2021-06-15 06:25 | NUR ---
Pt. has been repositioned for comfort. Maintaining O2 sat in the upper 90's on current vent settings at 30% FIO2. Suctioned prn. She has been afebrile.Oral care provided. Reorientation given.Tolerating tube feeding well with zero to min gastric residual. Making some progress towards care plan goals.
--- NOTE | 2021-06-15 15:00 | NUR ---
Discussed during los and unit rounds. Trach with vent support. Nutritional support. Dialysis today. Per hospitalist should be able to dc back to [facility] early next week. CM updated [facility], will need auth from insurance. Will cont. following as needed for dc needs.
--- NOTE | 2021-06-15 18:25 | NUR ---
PATIENT SLOWLY PROGRESSING TOWARD PLAN OF CARE, EVIDENCED BY NO NEW INCREASED NEED FOR OXYGEN AND BETTER TOLERANCE OF TUBE FEEDS.
[2021-06-16] VITALS (24 sets, daily range): BP systolic 102–152; BP diastolic 22–51
[2021-06-16 06:04] LABS: HEMATOCRIT 22.7 % (37.0-47.0); HEMOGLOBIN 7.4 gm/dL (12.0-15.0); MCH 30.3 pg (26.0-34.0); MCHC 32.4 g/dL (28.0-37.0); MCV 93.4 fL (80.0-100.0); RBC 2.43 mil/uL (4.20-5.00); RDW 19.1 % (10.5-14.5); WBC 13.6 thou/uL (4.0-11.0)
[2021-06-16 06:10] LABS: CALCIUM 8.1 mg/dL (8.5-10.1); CREATININE 1.6 mg/dL (0.6-1.0); POTASSIUM 3.6 mmol/L (3.5-5.1)
--- NOTE | 2021-06-16 19:23 | NUR ---
PATIENT IS PROGRESSING TOWARDS OUTCOME GOALS. PLEASE REFER TO ASSESSMENTS.
[2021-06-17] VITALS (23 sets, daily range): BP systolic 120–154; BP diastolic 26–65
--- NOTE | 2021-06-17 04:05 | NUR ---
PT REMAIN ALERT AND ORIENT TO PERSON, TIME AND SITUATION. DIFFICULT TO EXPRESS NEEDS. DOES NOD APPROPRIATELY TO YES/NO QUESTIONS. NO VENT CHANGES : FIO2 30%, RATE 16, PEEP 5, AND TV 45O. TOLERATING TF AT GOAL RATE. RIGHT TESSIO AND LEFT IJ INTACT. UPPER EXTREMITIES WEEPING, SS DRAINAGE. 2+EDEMA NOTED IN HANDS. SR PER MONITOR. SACRAL DRESSINGS INTACT, SMALL BM THIS SHIFT. SLOW PROGRESS TOWARDS DC GOALS. WILL CONTINUE TO MONITOR.
--- NOTE | 2021-06-17 07:24 | NUR ---
ASSUMMED CARE OF THID PATIENT FROM THE NIGHT NURSE, SAI JOINER.
--- NOTE | 2021-06-17 20:05 | NUR ---
PATIENT IS SLOWLY PROGRESSING TOWARDS OUTCOME GOALS. PLEASE REFER TO ASSESSMENTS.
[2021-06-18] VITALS (21 sets, daily range): BP systolic 127–165; BP diastolic 47–103
[2021-06-18 05:27] LABS: BASOPHILS 0.2 % (0.0-2.0); EOSINOPHILS 0.1 % (0.0-3.0); HEMATOCRIT 21.1 % (37.0-47.0); HEMOGLOBIN 7.1 gm/dL (12.0-15.0); LYMPHOCYTES 4.6 % (24.0-44.0); MCH 31.5 pg (26.0-34.0); MCHC 33.6 g/dL (28.0-37.0); MCV 93.9 fL (80.0-100.0); MONOCYTES 7.7 % (1.0-8.0); PLATELET COUNT 65 thou/uL (150-400); POLYS 87.4 % (36.0-66.0); RBC 2.25 mil/uL (4.20-5.00); RDW 19.1 % (10.5-14.5); WBC 10.3 thou/uL (4.0-11.0)
[2021-06-18 05:35] LABS: ALBUMIN 1.4 g/dL (3.4-5.0); CALCIUM 8.4 mg/dL (8.5-10.1); CREATININE 2.1 mg/dL (0.6-1.0); POTASSIUM 4.2 mmol/L (3.5-5.1); TOTAL BILIRUBIN 0.5 mg/dL (0.2-1.0); TOTAL PROTEIN 6.1 g/dL (6.4-8.2)
[2021-06-18 10:26] LABS: HCO3 28.9 mmol/L (22.0-26.0); PCO2 39.7 mmHg (35.0-45.0); PO2 84.4 mmHg (80.0-100.0)
--- NOTE | 2021-06-18 16:33 | NUR ---
faxed updates to [facility] today.
[2021-06-19] VITALS (19 sets, daily range): BP systolic 109–152; BP diastolic 30–62
--- NOTE | 2021-06-19 03:35 | NUR ---
ASSESSMENT: PT REMAIN ALERT AND ORIENT TIMES THREE. ABLE TO LET NEEDS BE KNOWN WITH MOUTHING WORDS AND NODS APPROPRIATELY YES/NO. VSS, AFEBRILE. SR PER MONITOR. MODERATE AMTS OF TRACH SUCTION AND SCANT AMTS ORALLY. VENT SETTINGS: FIO2 30%, PEEP 5, TV 450, RATE 16. TOLERATING TF AT GOAL. HAMILTON PATENT, UO DIMISHED. UPPER EXTREMITIES WEEPING AND EDEMATOUS. SACRAL DRESSING INTACT. SLOW PROGRESS TOWARDS DC GOALS. WILL CONTINUE TO MONITOR.
--- NOTE | 2021-06-19 07:40 | NUR ---
Spoke with cardio MD plan for JANIS around 1130 today. Order for one time dose of fentanyl and versed to be given during procedure received, read back, and entered into computer. Attempted to call Zhang for consent, no answer at this time.
[2021-06-19 08:40] LABS: HEMATOCRIT 21.7 % (37.0-47.0); HEMOGLOBIN 7.1 gm/dL (12.0-15.0); MCH 30.7 pg (26.0-34.0); MCHC 32.6 g/dL (28.0-37.0); MCV 94.2 fL (80.0-100.0); RBC 2.31 mil/uL (4.20-5.00); RDW 18.8 % (10.5-14.5); WBC 8.2 thou/uL (4.0-11.0)
--- NOTE | 2021-06-19 10:33 | NUR ---
WOUND CONSULT; I WAS CONSULTED TODAY TO ASSESS THE COCCYX WOUND. THE WOUND IS UNSTABLE ESCHAR. NO DRAINAGE SEEN. NO OOOR. THE PATIENT HAS EPISODES OF DIARRHEA. RECOMMENDATIONS; -CONSULT DR JOYCE. -USE A SACRAL FOAM FOR NOW. RN PRESENT
--- NOTE | 2021-06-19 12:18 | TEE ---
[address] [address] [place] [address] TRANSESOPHAGEAL ECHOCARDIOGRAM Name: LISS TOLBERT Room #: 241-P ADM IN M.R.#: [id number] Admission: 06/05/21 Attend Phys: Triston Lee MD Discharge: Date of : 58 Report #: [id number] THIS REPORT FOR: cc: FAM - Family physician unknown FAM - Family physician unknown Ike Ordoñez MD [facility] ~ APPROVED REPORT Study performed: 06/19/2021 11:24:02 EXAM: Comprehensive 2D, Doppler, and color-flow Echocardiogram Patient Location: ICU Room #: 241 Status: routine BSA: 1.79 HR: 70 bpm BP: 116/35 mmHg Rhythm: NSR Other Information Study Quality: Good Indications Endocarditis AVR Echo Enhancing Agent Indication: Rule out Shunt Agent(s) / Amount(s) Used: Agitated Saline 7 cc Procedure After obtaining informed consent, patient underwent transesophageal echo in the Bedside. Type of Sedation : Conscious Sedation Sedation was administered by Nurse. Sedation start time: 1124 Case end Time: 1134 Sedation was achieved intravenously with: Versed (3 mg) Fentanyl (50 mcg) Transesophageal probe was inserted and advanced into esophagus without difficulty by Ike Ordoñez MD. Echo enhancement indication: R/O Septal defect. Echo enhancement agent administered: Agitated Saline The JANIS was performed without complications. [address] [place] [address] TRANSESOPHAGEAL ECHOCARDIOGRAM Name: LISS TOLBERT Room #: 241-P [facility] IN M.R.#: [id number] Admission: 06/05/21 Attend Phys: Triston Lee MD Discharge: Date of : 58 Report #: [id number] Throughout the procedure, the blood pressure, pulse oximetry, cardiac rhythm, and rate were monitored. The patient tolerated the procedure without adverse effects. Recovery from conscious sedation was uneventful and vital signs were stable. Left Ventricle The left ventricle is normal size. There is normal left ventricular wall thickness. Left ventricular systolic function is moderately decreased. LVEF is 35%. Right Ventricle The right ventricle is normal size. The right ventricular systolic function is normal. Atria Left atrium is dilated. Interatrial septum is intact without evidence of ASD or PFO. Right atrium is at the upper limits of normal. Aortic Valve Bioprosthetic aortic valve is present. No aortic regurgitation is present. There is no aortic valvular stenosis. Mitral Valve The mitral valve is normal in structure. Mild mitral regurgitation. No evidence of mitral valve stenosis. Tricuspid Valve The tricuspid valve is normal in structure. There is no tricuspid valve regurgitation noted. Pulmonic Valve The pulmonary valve is normal in structure. There is no pulmonic valvular regurgitation. Great Vessels The aortic root is normal in size. Pericardium There is no pericardial effusion. <Conclusion> Consent was obtained After appropriate sedation esophageal probe was advanced without difficulty Left atrial appendage a moderate size, no evidence of mass or clot [facility] [address] [place] [address] TRANSESOPHAGEAL ECHOCARDIOGRAM Name: LISS TOLBERT Room #: 241-P ADM IN M.R.#: [id number] Admission: 06/05/21 Attend Phys: Triston Lee MD Discharge: Date of : 58 Report #: [id number] detected Mild biatrial enlargement Normal ventricular size/wall thickness Ejection fraction 35%, global hypokinesis Bioprosthetic aortic valve, no obvious mass or vegetation detected. Normal mitral valve structure, mild insufficiency, no obvious vegetation detected Tricuspid valve not well seen, mild tricuspid valve insufficiency, no obvious vegetation detected Pulmonary valve not well seen but no obvious insufficiency detected No pericardial effusion No evidence of ASD/VSD by color flow/bubble study Normal aortic root size Minimal calcification throughout the aorta Patient tolerated procedure well <ELECTRONICALLY SIGNED> By: Ike Ordoñez MD, FACC 06/19/211216 16 16 Ike Ordoñez MD, FACC /INF
--- NOTE | 2021-06-19 12:39 | NUR ---
Clinical updated faxed to [facility]. JANIS today. Will follow.
[2021-06-20] VITALS (47 sets, daily range): BP systolic 92–141; BP diastolic 33–97
--- NOTE | 2021-06-20 10:50 | NUR ---
to radiology per icu bed on monitor with dedra garza therapy.
[2021-06-20 10:52] LABS: HCO3 28.1 mmol/L (22.0-26.0); PCO2 40.3 mmHg (35.0-45.0); PO2 94.2 mmHg (80.0-100.0); pH 7.462 (7.360-7.450); sO2 97.5 % (92.0-98.0)
--- NOTE | 2021-06-20 11:20 | NUR ---
returned from radiology per cart.
--- NOTE | 2021-06-20 11:55 | NUR ---
dialysis in progress.
[2021-06-20 12:22] LABS: BASOPHILS 0.5 % (0.0-2.0); HEMOGLOBIN 6.8 gm/dL (12.0-15.0); PLATELET COUNT 69 thou/uL (150-400)
[2021-06-20 12:24] LABS: ABSOLUTE NEUTROPHILS 5.5 thou/uL (1.4-8.2); EOSINOPHILS 0.3 % (0.0-3.0); HEMATOCRIT 20.8 % (37.0-47.0); LYMPHOCYTES 5.4 % (24.0-44.0); MCH 30.7 pg (26.0-34.0); MCHC 32.6 g/dL (28.0-37.0); MONOCYTES 3.8 % (1.0-8.0); RBC 2.21 mil/uL (4.20-5.00); RDW 18.5 % (10.5-14.5); WBC 6.1 thou/uL (4.0-11.0)
[2021-06-20 13:29] LABS: ANISOCYTOSIS 2+; HYPOCHROMASIA 2+; POIKILOCYTOSIS 1+
--- NOTE | 2021-06-20 15:30 | NUR ---
dialysis completed- 2.5 Lit removed.
--- NOTE | 2021-06-20 16:56 | NUR ---
Passed on to hospitalist and Pulmonary MD that have to show in documentation, that vent weaning is happening, has to be off all dripps in order to get insurance auth and [facility]. Per hospitalist should be ready next week to [facility] to [facility]. Will cont following as needed for dc needs.
[2021-06-21] VITALS (43 sets, daily range): BP systolic 100–132; BP diastolic 35–46
--- NOTE | 2021-06-21 04:00 | NUR ---
ASSUMED CARE OF PATIENT AT 1900. ONE UNIT PRBC TRANSFUSED, TOLERATED WELL. COMPLETE BATH GIVEN, 2 BOWEL MOVEMENTS CHARTED. NO S/S OF DISTRESS. SEE CHARTING FOR ASSESSMENT.
[2021-06-21 04:50] LABS: HEMATOCRIT 24.6 % (37.0-47.0); HEMOGLOBIN 8.1 gm/dL (12.0-15.0); MCHC 33.1 g/dL (28.0-37.0); MCV 93.8 fL (80.0-100.0); RBC 2.62 mil/uL (4.20-5.00); RDW 17.3 % (10.5-14.5); WBC 8.3 thou/uL (4.0-11.0)
[2021-06-21 05:42] LABS: CALCIUM 8.1 mg/dL (8.5-10.1); CREATININE 1.3 mg/dL (0.6-1.0); MAGNESIUM 1.7 mg/dL (1.8-2.4); POTASSIUM 3.6 mmol/L (3.5-5.1)
--- NOTE | 2021-06-21 12:00 | NUR ---
sister present this am. providing support to pt. updating on pt status, plan to progress toward roasterman antibiotic therapy. all cares as provided. physical therapy, Arjun worked with pt today. well tolerated.
--- NOTE | 2021-06-21 14:47 | NUR ---
Faxed clinical information and sp with Danette at [facility]. Patient has not been accepted to return to [facility] at this time. Patient cannot be accepted if cont with ceftaroline medication. [facility] need documentation of vent weaning, prior to acceptance of patient ret
[2021-06-22] VITALS (46 sets, daily range): BP systolic 102–132; BP diastolic 36–69
--- NOTE | 2021-06-22 10:10 | HC ---
[facility] [place] [address] CONSULTATION Name: LISS TOLBERT Room #: 241-P ADM IN M.R.#: [id number] Admission: 06/05/21 Attend Phys: Triston Lee MD Discharge: Date of : 58 Report #: [id number] THIS REPORT FOR: cc: FAM - Family physician unknown FAM - Family physician unknown Clifton Pate MD ~ DATE OF SERVICE: 06/19/2021 CHIEF COMPLAINT: Sacral pressure ulceration. HISTORY OF PRESENT ILLNESS: This is a 60-year-old female patient who I am asked to see in the Intensive Care Unit with a sacral pressure ulceration. She has never presented to this facility before. She has been living at [facility], developed profound bradycardia. She is unable to provide any information about herself at this time. PAST MEDICAL HISTORY: Positive for history of coronary artery disease, status post CABG, history of E. coli and pseudomonas sepsis. She has a tracheostomy and PEG tube, history of pulmonary edema, respiratory failure, type 1 diabetes, coronary artery disease, cardiomyopathy, hyperlipidemia, COPD and anemia. SOCIAL HISTORY: Positive for being a heavy smoker. Alcohol, unknown. FAMILY HISTORY: Unknown. ALLERGIES: BUTALBITAL AND CODEINE. CURRENT MEDICATIONS: Include fentanyl, midazolam, amiodarone, lorazepam, fentanyl, levothyroxine, micafungin, daptomycin, ceftaroline, pantoprazole. PHYSICAL EXAMINATION: VITAL SIGNS: Current vital signs include temperature 37.0, pulse 64, respiration of 17, blood pressure 109/30. GENERAL: This is a chronically ill-appearing female patient who appears to be in minimal distress. HEENT: Head normocephalic. NECK: Demonstrates tracheostomy. LUNGS: Coarse. HEART: Irregular. ABDOMEN: Soft. SKIN: Sacral region demonstrates what appears to be a ring of granulation tissue with significant eschar in the center. It is relatively dry. Does not appear to be infected. The area is not able to be staged as we cannot see the base. LABORATORY DATA: Include white blood cell count 8.3 with a hemoglobin of 7.1, [facility] [address] [place] [address] CONSULTATION Name: DIDILISS M Room #: 241-P [facility] IN M.R.#: [id number] Admission: 06/05/21 Attend Phys: Triston Lee MD Discharge: Date of : 58 Report #: [id number] sodium 139, potassium 4.2, chloride 103, BUN 40, creatinine 2.1, albumin is 1.4. CLINICAL IMPRESSION: 1. Unstageable sacral pressure ulceration. 2. Respiratory failure, tracheostomy and respiratory support. 3. Type 1 diabetes mellitus. 4. Chronic obstructive pulmonary disease. 5. Hypertension. 6. Hyperlipidemia. RECOMMENDATIONS: At this point in time, she will need to be turned and repositioned every 2 hours to offload the sacral region. We will start with topical gentamicin ointment and Xeroform and ABD. I do not think she would be in an appropriate operative debridement at this time with general anesthesia, but we will plan for possible bedside debridement later this week to which she is agreeable. She will need significant nutritional support to offset the significant protein calorie malnutrition. I do appreciate being asked to see her in consultation. <ELECTRONICALLY SIGNED> By: Clifton Pate MD 06/22/21 1010 [id number] [id number] Clifton Pate MD /nt
--- NOTE | 2021-06-22 14:00 | NUR ---
DIALYSIS NURSE REMOVED TEMPORARY DIALYSIS CATHETER. NEW PERMANENT DIALYSIS CATHETER TO BE INSERTED FRIDAY. NOTED INCREASING THICK YELLOW SECRETIONS ON SUCTION REQUIRING 2-3 PASSES TO CLEAR.
--- NOTE | 2021-06-22 20:41 | NUR ---
PATIENT PROGRESSING TOWARD GOALS EVIDENCED BY COMPLETING AND TOLERATING CPAP TRIAL FOR 3 HOURS, COMPLETED DIALYSIS AND TOLERATED REMOVAL OF 3.5 L OFF, AND STABLE VITALS. NO FAMILY CALLED. SPOKE WITH SOCIAL WORK AND PATIENT TO GO TO [facility] IF ABLE TO REMOVE FOR VENT.
--- NOTE | 2021-06-22 20:46 | NUR ---
RIGHT IJ CATH TAKEN OUT BY THIS RN. TIME OF HOMEOSTATIS: 2044
[2021-06-23] VITALS (22 sets, daily range): BP systolic 98–138; BP diastolic 37–71
--- NOTE | 2021-06-23 06:24 | NUR ---
PATIENT IS SLOWLY PROGRESSING TOWARDS PLAN OF CARE EVIDENCED BY NEED OF MINIMAL VENT SETTING OF PEEP:5 AND FIO2:30 FOR OXYGEN SUPPORT. PATIENT IS A&O x4. PATIENT IS NOT ON ANY GTTS FOR EITHER BP OR VENT SUPPORT.
[2021-06-23 14:03] LABS: ABSOLUTE NEUTROPHILS 6.4 thou/uL (1.4-8.2); BASOPHILS 0.6 % (0.0-2.0); EOSINOPHILS 0.2 % (0.0-3.0); HEMATOCRIT 24.1 % (37.0-47.0); HEMOGLOBIN 7.9 gm/dL (12.0-15.0); LYMPHOCYTES 6.7 % (24.0-44.0); MCH 30.9 pg (26.0-34.0); MCHC 32.8 g/dL (28.0-37.0); MCV 94.3 fL (80.0-100.0); MONOCYTES 8.2 % (1.0-8.0); PLATELET COUNT 54 thou/uL (150-400); POLYS 84.3 % (36.0-66.0); RBC 2.55 mil/uL (4.20-5.00); RDW 17.7 % (10.5-14.5); WBC 7.6 thou/uL (4.0-11.0)
[2021-06-23 14:38] LABS: ALBUMIN 1.2 g/dL (3.4-5.0); CALCIUM 8.1 mg/dL (8.5-10.1); CREATININE 1.3 mg/dL (0.6-1.0); POTASSIUM 3.6 mmol/L (3.5-5.1); TOTAL BILIRUBIN 0.4 mg/dL (0.2-1.0); TOTAL PROTEIN 5.8 g/dL (6.4-8.2)
[2021-06-24] VITALS (23 sets, daily range): BP systolic 111–137; BP diastolic 37–55
[2021-06-24 14:49] LABS: BASOPHILS 0.8 % (0.0-2.0); EOSINOPHILS 0.4 % (0.0-3.0); HEMATOCRIT 23.6 % (37.0-47.0); HEMOGLOBIN 7.7 gm/dL (12.0-15.0); LYMPHOCYTES 6.7 % (24.0-44.0); MCH 31.1 pg (26.0-34.0); MCHC 32.5 g/dL (28.0-37.0); MCV 95.4 fL (80.0-100.0); MONOCYTES 7.7 % (1.0-8.0); POLYS 84.4 % (36.0-66.0); RBC 2.47 mil/uL (4.20-5.00); RDW 17.8 % (10.5-14.5); WBC 7.2 thou/uL (4.0-11.0)
[2021-06-24 14:53] LABS: PLATELET COUNT 53 thou/uL (150-400)
[2021-06-25] VITALS (55 sets, daily range): BP systolic 111–177; BP diastolic 30–113
--- NOTE | 2021-06-25 07:26 | NUR ---
NPO SINCE MIDNIGHT FOR A PROCEDURE TODAY.PAIN WELL CONTROLLED THIS MORNING.
--- NOTE | 2021-06-25 11:05 | NUR ---
Discussed during los and unit rounds. trach peg. Will need to be off ceftaroline IV abx and changed to some other ABX. Out of room to have tunneled cath placed. [facility] requested auth. Cm passed on to hospitalist and Pulmonary MD that cont. to need documentation on vent, wean trials. Will cont. following as needed for dc needs.
[2021-06-25 13:13] LABS: ALBUMIN 1.1 g/dL (3.4-5.0); CALCIUM 8.5 mg/dL (8.5-10.1); CREATININE 1.8 mg/dL (0.6-1.0); POTASSIUM 3.7 mmol/L (3.5-5.1); TOTAL BILIRUBIN 0.4 mg/dL (0.2-1.0)
[2021-06-25 13:16] LABS: BASOPHILS 0.2 % (0.0-2.0); EOSINOPHILS 0.5 % (0.0-3.0); HEMATOCRIT 23.1 % (37.0-47.0); HEMOGLOBIN 7.6 gm/dL (12.0-15.0); LYMPHOCYTES 6.7 % (24.0-44.0); MCH 31.3 pg (26.0-34.0); MCV 94.9 fL (80.0-100.0); POLYS 84.6 % (36.0-66.0); RBC 2.44 mil/uL (4.20-5.00); RDW 17.5 % (10.5-14.5); WBC 7.1 thou/uL (4.0-11.0)
[2021-06-25 13:18] LABS: PLATELET COUNT 55 thou/uL (150-400)
--- NOTE | 2021-06-25 15:53 | NUR ---
PT IS PROGRESSING TOWARD POC EVIDENCED BY MINIMAL VENT SETTINGS. PEEP 5 , FI02 0.3 , TV 450 AND RATE OF 16. SHE HAS PAIN AT THE TRACH SITE AND SOME BLOODY DRAINAGE THAT IS MINIMAL. PT IS A/O, FOLLOWING COMMANDS, AND HAS STABLE VS. HER SBP IS RUNNING 140-150; HR IS BRADYCARDIC WITH SOME PACS. PT WENT TO IR AT 1000 FOR PLACEMENT OF A RIGHT JUGULAR CVC AND A LEFT IJ TUNNELED. PT IS SLEEPING DURING HD TX.
[2021-06-26] VITALS (30 sets, daily range): BP systolic 104–132; BP diastolic 36–68
[2021-06-26 06:43] LABS: ABSOLUTE NEUTROPHILS 7.2 thou/uL (1.4-8.2); BASOPHILS 0.3 % (0.0-2.0); EOSINOPHILS 0.6 % (0.0-3.0); HEMATOCRIT 23.7 % (37.0-47.0); HEMOGLOBIN 7.8 gm/dL (12.0-15.0); LYMPHOCYTES 6.1 % (24.0-44.0); MCH 31.3 pg (26.0-34.0); MCHC 33.1 g/dL (28.0-37.0); MCV 94.6 fL (80.0-100.0); MONOCYTES 7.8 % (1.0-8.0); PLATELET COUNT 70 thou/uL (150-400); POLYS 85.2 % (36.0-66.0); RDW 17.4 % (10.5-14.5); WBC 8.4 thou/uL (4.0-11.0)
[2021-06-26 06:57] LABS: ALBUMIN 1.2 g/dL (3.4-5.0); CALCIUM 8.4 mg/dL (8.5-10.1); CREATININE 1.2 mg/dL (0.6-1.0); POTASSIUM 3.5 mmol/L (3.5-5.1); TOTAL BILIRUBIN 0.3 mg/dL (0.2-1.0)
--- NOTE | 2021-06-26 08:45 | NUR ---
[facility] 1900. PT/VITALS STABLE. INTERMITTENT INCISIONAL PAIN(TACHE SITE)A/O X 4. MOUTHS WORDS TO COMMUNICATE PAIN. POOR TOLERANCE TO ACTIVITY. NO DISTRESS NOTED THROUGH THE SHIFT. SR ON MONITOR. ASSESSMENT CHARTED. PROGRESSING WELL WITH POC. PLAN IS POSSIBLE DISCHARGE TO STEP DOWN UNIT WITHIN THE NEXT 1-2 DAYS AND THEN POSSIBLE DISCHARGE OUT. WILL CONTINUE TO MONITOR AND FOLLOW WITH POC
--- NOTE | 2021-06-26 17:15 | NUR ---
cm notified by [facility], that do not have bed today and will let cm team know if have bed tomorrow.
--- NOTE | 2021-06-26 19:29 | NUR ---
PATIENT TRANSFERRED FROM ICU. PATIENT BLOOD PRESSURE HYPOTENSIVE; HELD CARVEDIOL. PATIENT ALSO HYPOGLYCEMIC WITH BLOOD GLUCOSE OF 55; ADMINISTERED PRN DEXTROSE. BLOOD GLUCOSE RECHECKED WAS 112. PATIENT COMPLAINT OF PAIN; ADMINISTERED PRN PAIN MEDICATION. PATIENT COMPLAINT OF SOA; RESPIRATORY THERAPY ADMINISTERED NONSCHEDULED BREATHING TREATMENT. PATIENT APPEARS ANXIOUS; EDUCATED PATIENT AND PROVIDED THERAPEUTIC COMMUNICATION. REPOSITIONED PATIENT ON RIGHT SIDE SHE WAS C/O PAIN IN BUTTOCK. FALL PRECAUTIONS IN PLACE AND CALL LIGHT WITHIN REACH. REPORT GIVEN TO DRAW OFF WORKER NURSE AT BEDSIDE. DENIES ANY NEEDS AT THIS TIME.
[2021-06-27 01:08] VITALS: BP 112/42
[2021-06-27 05:57] VITALS: BP 127/43
--- NOTE | 2021-06-27 07:52 | NUR ---
ASSUMED PT CARE AT 1900, PT IS ORIENTEDX3, SR ON TELE, FENTANYL GIVEN FOR BACK PAIN, ASSESSMENTS CHARTED, PEG TUBE IN PLACE WITH TF RUNNING AT 45ML/HR, WEEPING EDEMA ON BLE, REMAINS ON VENT, 02SATS STABLE, NO NEEDS AT THIS TIME, PASSED ON REPORT TO DAY NURSE
[2021-06-27 08:20] VITALS: BP 92/41
--- NOTE | 2021-06-27 14:45 | NUR ---
Faxed updates to [facility] for review.
[2021-06-27 15:53] VITALS: BP 117/48
--- NOTE | 2021-06-27 16:27 | NUR ---
PATIENT REMAINED A/O X 4, VITAL SIGNS STBLE. COREG HELD X2 DT BRADYCARDIA AND ORDER PARAMETERS. FENTANYL AND TYLENOL GIVEN FOR PAIN PRN. TFS CONTINUED AT GOAL, TUBING CHANGED AT 1300. PEG IN PLACE, DRIED SANGUINOUS DRAINAGE AROUND SITE WAS CLEANED AND SPLIT GAUZE PLACED. SHE HAD ONE LARGE LOOSE BM LATER THIS SHIFT. WOUND CARE GIVEN- BOTTOM LAYER OF DRESSING WAS REMOVED BM HAD CONTAMINATED SITE- WOUND CARE MD AWARE. PATIENT REMAINS EDEMATOUS, PITTING 2+ IN ALL EXTREMITIES, R RADIAL/R AND L PEDAL PULSES NOT PALPABLE, DOPPLER PRESENT.
[2021-06-27 19:35] VITALS: BP 108/39
[2021-06-28 04:07] VITALS: BP 140/49
--- NOTE | 2021-06-28 07:27 | NUR ---
assessments as charted, pt nonverbal, mouth words appropriately, alert and oriented, c/o generalized pain, fentanyl givel with partial relief, tf infusing at goal, one time order of lorazapam given for anxiety, no bowel movement this shift, vss, report given to day nurse
[2021-06-28 08:30] VITALS: BP 127/44
[2021-06-28 11:00] VITALS: BP 137/50
[2021-06-28 12:12] LABS: BE(vivo) 4.6 mmol/L (-2 to +3); HCO3 28.6 mmol/L (22.0-26.0); PCO2 40.2 mmHg (35.0-45.0); PO2 107.2 mmHg (80.0-100.0); sO2 98.2 % (92.0-98.0)
[2021-06-28 16:14] VITALS: BP 121/46
--- NOTE | 2021-06-28 17:06 | NUR ---
sent updated to [facility]. Sp with Danette they have no beds until next week.
--- NOTE | 2021-06-28 17:27 | NUR ---
PATIENT REMAINS A/O X 4, FOLLOWS COMMANDS. SHE SLEPT OFF AND ON THROUGHOUT THE DAY. DID REQUIRE XANAX X2 FOR ANXIETY AND FENTANYL X1 FOR PAIN. PATIENT TOLERATED ~1HR OF CPAP TRIAL PER RT THIS AFTERNOON. EDEMA IMPROVED COMPARED TO YESTERDAY'S ASSESSMENT. SHEE HAD TWO LOOSE BMS, THE SECOND BEING SLIGHTLY MORE DENSE, LESS LOOSE, SMALL AMOUNT. MIRALAX/COLACE AM DOSES HELD. L CHEST DRAIN REMAINS INTACT AND DRAINING/FLUSHING APPROPRIATELY, 70ML YELLOW LQ DRAINAGE. 60ML UO. DISCUSSED WITH DR. RODRIGUEZ PATIENT'S DIFFICULTY SLEEPING- BENADRYL HS PRN ORDERED. ALSO DISCUSSED BLOOD SUGAR OF 72, SSI ADJUSTED TO LOWER SCALE. WILL CONTINUE TO MONITOR.
[2021-06-28 20:02] VITALS: BP 128/46
[2021-06-29 05:54] VITALS: BP 127/43
--- NOTE | 2021-06-29 07:43 | NUR ---
REMAINS ALERT AND ORIENTED, NON-VERBAL, MOUTHS WORDS APPROPRIATELY, SR ON TELE, TRAMADOL GIVEN FOR PAIN WITH RELIEF, REMAINS ON A VENTILATOR, VENT SETTINGS UNCHANGED, TF INFUSING AT GOAL, ABOMEN SOFT AND NON TENDER, VSS, REPOSITIONED FOR COMFORT, ONE LARGE LOOSE STOOL THIS SHIFT, OROL CARE PERFORMED, FREQUENT ROUNDING, SLEPT WELL THIS SHIFT, PASSED ON REPORT TO DAY NURSE
[2021-06-29 08:00] VITALS: BP 135/51
--- NOTE | 2021-06-29 11:41 | NUR ---
Pt on cpap trial this am and abg's good. RT working on weaning to [facility] with o2 if tolerates. [facility] updated and they hope to have a bed next week and will submit for ins auth Friday. They will need updated clinical. Wound care discussing I/D. ST to work on po trials but enteral feedings need to continue. Will ask PT/OT/RN to work on increasing endurance. Dialysis MWF.Dc plan is to return to LTAC level of care (SNF is not an option due to her care needs). Pt and spouse agreeable to return to [facility].
[2021-06-29 11:43] LABS: HEMATOCRIT 24.1 % (37.0-47.0); HEMOGLOBIN 7.8 gm/dL (12.0-15.0); MCHC 32.4 g/dL (28.0-37.0); MCV 95.8 fL (80.0-100.0); RBC 2.52 mil/uL (4.20-5.00); RDW 18.9 % (10.5-14.5); WBC 10.8 thou/uL (4.0-11.0)
[2021-06-29 11:54] LABS: CALCIUM 8.7 mg/dL (8.5-10.1); CREATININE 1.8 mg/dL (0.6-1.0); POTASSIUM 3.5 mmol/L (3.5-5.1)
[2021-06-29 12:00] VITALS: BP 141/50
[2021-06-29 15:00] VITALS: BP 123/56
[2021-06-29 20:16] VITALS: BP 128/47
[2021-06-30 04:12] VITALS: BP 121/45
--- NOTE | 2021-06-30 04:32 | NUR ---
RECEIVED THE PATIENT AT 1900H.WITH TRACHEOSTOMY TO [facility] VENT AT 30%FIO2.WITH DIALYSIS CATHETER INTACT, HAD DIALYSIS TODAY.WITH LEFT JUGULAR CENTRAL LINE INTACT.WITH HAMILTON CATHETER INTACT.REPOSITIONED FOR COMFORT.FREQUENT ROUNDING.ALL NEEDS ATTENDED.FOR CONTINOUS MONITORING.
[2021-06-30 05:22] LABS: HEMOGLOBIN 6.8 gm/dL (12.0-15.0)
[2021-06-30 05:24] LABS: HEMATOCRIT 20.2 % (37.0-47.0); MCH 31.9 pg (26.0-34.0); MCHC 33.7 g/dL (28.0-37.0); MCV 94.6 fL (80.0-100.0); RBC 2.13 mil/uL (4.20-5.00); RDW 18.3 % (10.5-14.5)
[2021-06-30 05:36] LABS: CALCIUM 8.1 mg/dL (8.5-10.1); CREATININE 1.3 mg/dL (0.6-1.0); POTASSIUM 3.3 mmol/L (3.5-5.1)
[2021-06-30 08:22] VITALS: BP 133/76
[2021-06-30 12:06] VITALS: BP 139/47
--- NOTE | 2021-06-30 15:33 | NUR ---
PT AFEBRILE, OLIGURIC (PROVIDERS AWARE), NO BM, TUBE FEEDING AT GOAL VIA PEG TUBE. LEFT SUB-CLAVIAN CENTRAL LINE IN PLACE AND FUNCTIONING WELL. RIGHT SUBCLAVIAN HD CATH IN PLACE. PLAN DO WEANING/CPAP TRIAL TODAY. PLAN TO GIVE ONE UNIT OF PRBC. PT AND HAVE BEEN THOUROUGHLY UPDATED AND EDUCATED ON PT CONDITION AND POC. PT NOT PROGRESSING TOWARDS POC.
[2021-06-30 16:47] VITALS: BP 119/48
[2021-06-30 17:55] VITALS: BP 115/49; BP 124/46
[2021-06-30 19:06] VITALS: BP 128/45
[2021-07-01 04:04] VITALS: BP 110/40
--- NOTE | 2021-07-01 04:10 | NUR ---
RECEIVED PATIENT AT 1900H.WITH TRACHEOSTOMY CONNECTED TO MECHANICAL VENTILATOR AT 30% FIO2.WITH DIALYSIS CATHETER INTACT.WITH LEFT SUBCLAVIAN CENTRAL LINE INTACT.WITH HAMILTON CATHETER INTACT.REPOSITIONING DONE.FREQUENT ROUNDING.SUCTIONED SECRETIONS PRN.1 UNIT OF PRBC COMPLETED AT 2015H, NO TRANSFUSION REACTION NOTED.ALL NEEDS ATTENDED.
[2021-07-01 06:05] LABS: HEMATOCRIT 24.6 % (37.0-47.0); HEMOGLOBIN 8.1 gm/dL (12.0-15.0); MCH 29.9 pg (26.0-34.0); MCV 90.6 fL (80.0-100.0); RBC 2.71 mil/uL (4.20-5.00); RDW 21.9 % (10.5-14.5); WBC 8.5 thou/uL (4.0-11.0)
[2021-07-01 06:14] LABS: CALCIUM 8.3 mg/dL (8.5-10.1); CREATININE 1.8 mg/dL (0.6-1.0); POTASSIUM 3.8 mmol/L (3.5-5.1)
[2021-07-01 08:46] VITALS: BP 111/41
[2021-07-01 12:21] VITALS: BP 125/47
--- NOTE | 2021-07-01 17:41 | NUR ---
PT DID NOT TOLERATE WEANING TRIAL TODAY. CONTINUE WITH FREQUENT SUCTIONG AND ORAL CARE. WILL CONTINUE TO ASSESS.
[2021-07-01 19:42] VITALS: BP 136/54
--- NOTE | 2021-07-02 03:57 | NUR ---
PT IS ALERT AND ORIENTED REMAINS ON THE VENT. PT WILL TELL YOU SHE IS IN PAIN OR NEEDS SUCTIONED WITH NURSING CARE. MEDS GIVEN FOR PAIN COMPLAINTS AND ANXIETY MEDS GIVEN. AFTERWARDS RESTING ON THE VENT LESS ANXIOUS. TUBE FEEDING INFUSING WITHOUT DIFFICULTY. DRAIN TO LEFT BREAST FLUSHED ORDERED. HAMILTON TO DD WITH URINE. ABDOMEN IS SOFT BOWEL SOUNDS ACTIVE. BOOTS ON HEEL AND FREQUENTLY REPOSTIONED FOR CARE. ONGOING CARE NEEDED PER ARSLAN AT THIS TIME.
[2021-07-02 04:00] VITALS: BP 124/56
[2021-07-02 07:30] VITALS: BP 128/53
--- NOTE | 2021-07-02 09:24 | NUR ---
PT CURRENTLY HAVING DIALYSIS.
[2021-07-02 11:11] VITALS: BP 140/66
[2021-07-02 15:09] VITALS: BP 140/52
--- NOTE | 2021-07-02 15:09 | NUR ---
PT FINISH WITH DIALYSIS. 3.5L REPORTED TAKEN OFF.
--- NOTE | 2021-07-02 16:58 | NUR ---
Faxed clinical inforamation to [facility] today. I/D in am. Sp with patient who can nod yes/no. She is agreeable to return to [facility] once stable.
--- NOTE | 2021-07-02 18:22 | NUR ---
CONTACT DR. OVALLES TO INFORM OF RED URINE IN HAMILTON COLLECTION BAG. ISTRUCTED TO DRAW A CPK IN THE AM. WILL CONTINUE TO ASSESS.
[2021-07-02 19:40] VITALS: BP 127/51
[2021-07-03 00:03] VITALS: BP 106/46
[2021-07-03 03:09] VITALS: BP 125/56
--- NOTE | 2021-07-03 05:55 | NUR ---
ASSUMED CARE OF PT AT 1900. PT IS AOX3 60F CARDIOGENIC SHOCK PT. PT IS BEING MAINTAINED ON A VENT WITH SATS 7.5 CORTEX, 16RESP, TV 450, PEEP-5, FIO2 30%. THROUGHOUT THE NIGHT REMAINED 95-100% ON VENT SATS. ORAL CARE AND IN-LINE SUCTIONING PERFORMED Q1-2 HOURS ALTERNATING RT/RN. FEEDINGS CONTINUOUS AT 20 ML/HR THROUGH PEG TUBE. MEDS CRUSHED AND FLUSHED THROUGH PEG TUBE, NPO AT 12 - FEEDINGS STOPPED, FLUSHED AND LOCKED, WILL HOLD FOR DEBRIDEMENT AND OSTOMY CREATION TODAY. DRAIN LUQ FLUSHED Q6 WITH 10 ML NS, DRAINING APPROPRIATELY. PAIN CONTROLLED WITH ULTRAM PER TUBE AND FENTANYL 25MCG ALTERNATING. PT ANURIC, TINGED WITH BLOOD KNOWN BY CARE TEAM - PLAN FOR CPK IN AM -50 ML TONIGHT. SR ON THE MONITOR THROUGHOUT THE NIGHT. HAD TWO BOWEL MOVEMENTS THROUGHOUT THE NIGHT, CHANGED SACRAL PAD. TURNED Q2 WITH PILLOWS AND BOOTS THROUGHOUT THE NIGHT. CAN COMMUNICATE ALL NEEDS BY WHISPERING OR MOUTHING WORDS. SUGARS Q6 WELL CONTROLLED THROUGHOUT THE NIGHT, 84 @ 0530 WILL PASS ON TO DAY SHIFT RN TO AVOID HYPOGLYCEMIA. WILL CONTINUE TO MONITOR.
[2021-07-03 07:00] VITALS: BP 153/61
[2021-07-03 11:00] LABS: HEMATOCRIT 24.3 % (37.0-47.0); HEMOGLOBIN 7.7 gm/dL (12.0-15.0); MCHC 31.7 g/dL (28.0-37.0); MCV 91.6 fL (80.0-100.0); RBC 2.66 mil/uL (4.20-5.00); RDW 21.3 % (10.5-14.5); WBC 11.4 thou/uL (4.0-11.0)
[2021-07-03 11:12] LABS: CALCIUM 8.5 mg/dL (8.5-10.1); CREATININE 1.6 mg/dL (0.6-1.0); POTASSIUM 3.6 mmol/L (3.5-5.1)
[2021-07-03 11:30] VITALS: BP 136/58
--- NOTE | 2021-07-03 15:43 | NUR ---
PT RESTING, PAIN NOT WELL CONTROLLED. TRACH IN PLACE WITH VENT SETTINGS UNCHANGED. PT AFEBRILE, OLIGURIC, PEG TUBE IN PLACE AND PT IS NPO FOR SURGERY, TUBE FEEDINGS OFF, BM X1. LEFT SUBCLAV CENTRAL LINE IN PLACE AND FUNCTIONING WELL. RIGHT SUBCLAV HD CATH IN PLACE. PT TO OR TODAY FOR COLOSTOMY PLACEMENT AND SACRAL WOUND I&D. PT HAS BEEN THOUROUGHLY UPDATED AND EDUCATED ON PT CONDITION AND POC. PT SLOWLY PROGRESSING TWOARDS POC.
[2021-07-03 19:30] VITALS: BP 145/59
[2021-07-04 04:06] VITALS: BP 111/38
[2021-07-04 06:29] LABS: HEMOGLOBIN 8.4 gm/dL (12.0-15.0); MCH 29.7 pg (26.0-34.0); MCHC 32.1 g/dL (28.0-37.0); MCV 92.4 fL (80.0-100.0); RBC 2.81 mil/uL (4.20-5.00); RDW 21.3 % (10.5-14.5); WBC 12.2 thou/uL (4.0-11.0)
[2021-07-04 06:45] LABS: ALBUMIN 1.3 g/dL (3.4-5.0); CALCIUM 8.1 mg/dL (8.5-10.1); CREATININE 1.9 mg/dL (0.6-1.0); MAGNESIUM 2.1 mg/dL (1.8-2.4); TOTAL BILIRUBIN 0.6 mg/dL (0.2-1.0); TOTAL PROTEIN 6.2 g/dL (6.4-8.2)
[2021-07-04 06:47] LABS: POTASSIUM 4.8 mmol/L (3.5-5.1)
--- NOTE | 2021-07-04 08:06 | NUR ---
SLEPT MOST OF SHIFT. TURNED EVERY 2-3 HOURS FOR COMFORT AND SKIN CARE. PAIN MEDICATION GIVIN NEEDED. CONTINUE TO ASSES. MONITOR BOWEL SOUNDS POST SURGERY.
[2021-07-04 08:34] VITALS: BP 88/40
[2021-07-04 12:25] VITALS: BP 88/39
[2021-07-04 15:43] VITALS: BP 114/49
--- NOTE | 2021-07-04 17:07 | NUR ---
Faxed updates to [facility]. They need documentation of vent weaning and pulmunary progress notes.
--- NOTE | 2021-07-05 03:40 | NUR ---
RECEIVED PATIENT AT 1900H.[facility] FIO2, OWITH DIALYSIS CATHETER INTACT.STILL OLYGURIC AND WITH HAMILTON CATHETER INTACT.WITH LEFT SUBCLAVIAN CENTRAL LINE INTACT.WITH LEFT BREAST DRAIN INTACT.WITH PEG TUBE INTACT WITH RUNNING FEED FLUSH ORDERED.WITH COLOSTOMY INTACT BEEFY RED AND STILL WITH SANGUINOUS DRAINAGE, FORK REPAIRER INFORMED, SHE ORDERED TO HOLD THE NIGHT DOSE OF HEPARIN.BOWEL SOUNDS PRESENT.TURNING DONE.ALL NEEDS ATTENDED.FOR CONTINOUS MONITORING.
[2021-07-05 05:43] VITALS: BP 120/52
[2021-07-05 06:02] LABS: HEMOGLOBIN 7.4 gm/dL (12.0-15.0); MCH 29.7 pg (26.0-34.0); MCHC 32.1 g/dL (28.0-37.0); MCV 92.3 fL (80.0-100.0); RBC 2.49 mil/uL (4.20-5.00); RDW 21.7 % (10.5-14.5)
[2021-07-05 06:48] LABS: CALCIUM 8.3 mg/dL (8.5-10.1); CREATININE 1.6 mg/dL (0.6-1.0); POTASSIUM 3.8 mmol/L (3.5-5.1)
[2021-07-05 07:45] VITALS: BP 135/57
[2021-07-05 12:04] VITALS: BP 137/56
[2021-07-05 15:16] VITALS: BP 126/52
--- NOTE | 2021-07-05 17:23 | NUR ---
ASSESSMENT CHARTED - MEDS PER MAR - GIVEN FENTANYL AND DILAUDID FOR PAIN AND APPLIED DURAGESIC PATCH WITH GOOD RELIEF ON PAIN - PT CO'S OF PAIN IN ABDO AND SACRUM. MOY TUBE FEEDINGS. MEDS PER PEG. DRESSING CHANGED SEEN BY WOUND CARE AND DAKINS TO BE USED. OSTOMY WITH BROWN LIQUID DRAINAGE - L BREAST TUBE WITH YELLOW DRAINAGE. VENT SETTING REMIAN UNCHANGED - PT SUCTIONED WITH MOD/LARGE AMOUNT OF YELLOW DRAINAGE. ACCUCHECKS CHARTED COVERED PER SSI PRN. UA TO LAB ORDERED. NO CO'S AT THE PRESENT TIME APPEARS TO BE RESTING.
[2021-07-05 19:42] VITALS: BP 108/48
[2021-07-05 19:45] LABS: URINE BLOOD 3+ (Negative); URINE GLUCOSE-RANDOM* NEGATIVE (Negative); URINE KETONES 1+ (Negative); URINE LEUKOCYTES 2+ (Negative); URINE NITRITE POSITIVE (Negative); URINE PROTEIN (DIPSTICK) 2+ (Negative); URINE SPECIFIC GRAVITY >= 1.030 (1.005-1.035)
[2021-07-05 19:47] LABS: ICTOTEST (BILI CONFIRMATORY) Negative (Negative); URINE BILIRUBIN NEGATIVE (Negative); URINE CLARITY CLOUDY; URINE COLOR BROWNISH
[2021-07-05 19:53] LABS: BACTERIA >30 Many /HPF (None Seen); CASTS None Seen /LPF (None Seen); SQUAMOUS 4-10 Moderate /LPF (0-3); URINE WBC >25 Many /HPF (NONE SEEN)
[2021-07-05 19:54] LABS: CRYSTALS None Seen /LPF (None Seen); YEAST Present (None Seen)
--- NOTE | 2021-07-06 03:51 | NUR ---
PATIENT RESTINGIG IN BED WATCHING TV. SHE IS AAOX4. SHE DOES HAVE A TRACH IN PLACE BUT IS ABLE TO WHISPER WORDS. SHE HAS BEEN HAVING SOME ISSUES WITH PAIN TONIGHT TO HER ABDOMEN AND HER BUTTOCK. SHE HAS A FEEDING TUBE IN PLACE THAT IS PATENT AND HAS ZERO RESIDUAL. PATIENT HAS COLOSTOMY BAG IN PLACE WELL. WOUND TO COCCYX IS DRESSED AND THE DRESSING IS CDI. PATIENTS VITAL SIGNS HAVE BEEN STABLE THROUGHOUT. SHE IS CALM AND COOPERATIVE. NO S/S OF DISTRESS OTED. WILL CONTINUE TO MONITOR FPR CHANGES IN PATIENT STATUS.
[2021-07-06 05:00] VITALS: BP 115/47
[2021-07-06 07:30] VITALS: BP 113/49
[2021-07-06 11:15] VITALS: BP 133/63
--- NOTE | 2021-07-06 12:07 | PATH ---
[facility] [address] [place] [address] PATHOLOGY RPT PROCEDURE Name: MAGO TOLBERT Room #: 202-P ADM IN M.R.#: [id number] Admission: 06/05/21 Date of : 58 Discharge: Report #: [id number] Path Case #: [id number] [facility] Accession Number: [id number] . 01 Material submitted: . sacrum - SACRAL TISSUE . 01 Clinical history: . INCISION AND DRAINAGE SACRAL WOUND COLOSTOMY . 02 Diagnosis: Sacral tissue, debridement: - Skin and subcutaneous tissue with marked acute inflammation, and fibrinoid degeneration, consistent with wound. (IUV/db; 07/05/2021) LBQ 07/05/2021 [facility]2 Local . 02 Electronically signed: . Rema Parrish MD, Pathologist NPI- [id number] . 01 Gross description: . The specimen is received in formalin, labeled "Mago Tolbert, sacral tissue". Received is an irregular segment of pale parnell to dusky lovelace-brown skin with attached underlying tissue measuring 6.2 x 4.5 x 1.1 cm in greatest dimensions. The specimen is submitted representatively in cassette A1. ([facility]; 07/04/2021) [facility] 07/04/2021 1510 Local . 02 Pathologist provided ICD-10: L98.9 . 02 CPT . 740949 Specimen Comment: A courtesy copy of this report has been sent to [phone] Specimen Comment: [id number] Specimen Comment: Report sent to AND DR CRAWFORD Specimen Comment: A duplicate report has been generated due to demographic updates. Performed at: 01 [facility] [address] [id number] MD Isaac Rasmussen MD Phone: [phone] Performed at: 02 [facility] [address] [place] [address] PATHOLOGY RPT PROCEDURE Name: MAGO TOLBERT Room #: 202-P [facility] IN M.R.#: [id number] Admission: 06/05/21 Date of : 58 Discharge: Report #: [id number] Path Case #: [id number] [address] [place] [id number] MD Rema Parrish MD Phone: [phone]
--- NOTE | 2021-07-06 15:35 | NUR ---
ASSESSMENT CHARTED - MEDS PER DEDE - MOY DIET AND FLUIDS. SEEN BY PHYS THERAPY AND SPEECH THERAPY. UP IN ROOM TO THE BATHROOM. PT TO [facility] THIS AFTERNOON. PT TRANSFERE WITH HER BELONGINGS AND SON PRESENT AT TIME OF TRANSFER. PATIENT REMAINED CONFUSED AND WONDERED WHERE SHE WAS GOIONG. LEFT UNIT VIA WHEELCHAIR. REPORT CALLED TO UNIT.
[2021-07-06 15:40] VITALS: BP 156/80
--- NOTE | 2021-07-06 16:33 | NUR ---
Faxed clinical update to [facility]. Alerted patient is ready to dc to LTAC. They are reviewing. no weekend dc anticipated.
--- NOTE | 2021-07-06 16:36 | NUR ---
ASSESSMENT CHARTED - MEDS PER MAR - GIVEN DILAUDID AND TRAMADOL FOR CO'S OF ABDO PAIN WITH MOD EFFECT. MOY TUBE FEEDING WITH NO RESIDUAL. OSTOMY WITH BROWN LIQUID MARLI - L CHEST/BREAST DRAIN WITH YELLOW / CREAM COLOURED DRAINAGE. ACCUCHECKS CHARTED - COVERED PER SSI PRN. DRESSING TO BE CHANGED WITH NEW ORDERS. PEG TUBE SITE WITH MIN DRAINAGE. PT HAD DIALYSIS THIS THIS SHIFT MOY WELL 2L REMOVED. HAMILTON CATH TO BE REPLACED ORDERED. VENT SETTING REMAIN UNCHANGED- NO CO'S AT THE PRESENT TIME.
[2021-07-06 20:50] VITALS: BP 112/52
--- NOTE | 2021-07-07 03:14 | NUR ---
PATIENT DOING OKAY THIS SHIFT. STATES THAT SHE IS STILL HAVING PAIN PRETTY FREQUENTLY. SHE HURTS ON HER BACKSIDE AND HER STOMACH. SHE CONTINUES TO HAVE NEPRO NUTRITIONAL SUPPORT INFUSING VIA PED TUBE. NO RESIDEUAL NOTED. NOTED SOME REDNESS AT THE AREA OF INSERTION. HAMILTON IN PLACE WELL DRAIN UNDER THE LEFT BREATS. MILD AMOUNT OF YELLOW DRAINAGE NOTED TO DRAIN. PATIENT REMAINS ON VENTILATOR AT THIS POINT. WOUND TO HER BACKSIDE IS CHANGED. NOTED DARK TISSUE WITHIN ULCER/WOUND. PATIENT DID HAVE DIALYSIS THIS AM BUT HER VITAL SIGNS REMAIN STABLE. NO ACUTE CHANGES IN PATIENT STATUS NOTED. RT CLEANED AREA AROUND TRACH. WILL CONTINUE TO MONT[place] FOR CHANGES IN PATIENT STATUS.
[2021-07-07 04:45] VITALS: BP 127/54
[2021-07-07 05:22] LABS: HEMATOCRIT 23.9 % (37.0-47.0); HEMOGLOBIN 7.7 gm/dL (12.0-15.0); MCH 29.5 pg (26.0-34.0); MCHC 32.3 g/dL (28.0-37.0); MCV 91.2 fL (80.0-100.0); RBC 2.62 mil/uL (4.20-5.00); RDW 21.7 % (10.5-14.5); WBC 13.5 thou/uL (4.0-11.0)
[2021-07-07 05:37] LABS: CALCIUM 8.1 mg/dL (8.5-10.1); CREATININE 1.3 mg/dL (0.6-1.0); PHOSPHORUS 1.5 mg/dL (2.5-4.9); POTASSIUM 3.3 mmol/L (3.5-5.1)
[2021-07-07 07:20] VITALS: BP 130/56
[2021-07-07 11:10] VITALS: BP 145/62
[2021-07-07 15:35] VITALS: BP 164/68
[2021-07-07 20:52] VITALS: BP 151/53
--- NOTE | 2021-07-08 03:35 | NUR ---
PT LYING IN BED. DILAUDID AND TRAMADOL PROVIDING PAIN RELIEF. FREQUENT OBSERVATION.
[2021-07-08 04:59] VITALS: BP 142/56
[2021-07-08 07:20] VITALS: BP 122/44
[2021-07-08 09:49] LABS: BASOPHILS 0.3 % (0.0-2.0); HEMATOCRIT 24.9 % (37.0-47.0); HEMOGLOBIN 7.9 gm/dL (12.0-15.0); LYMPHOCYTES 6.7 % (24.0-44.0); MCH 29.6 pg (26.0-34.0); MCHC 31.9 g/dL (28.0-37.0); MCV 92.7 fL (80.0-100.0); MONOCYTES 6.9 % (1.0-8.0); PLATELET COUNT 129 thou/uL (150-400); POLYS 85.1 % (36.0-66.0); RBC 2.68 mil/uL (4.20-5.00); RDW 21.3 % (10.5-14.5); WBC 10.6 thou/uL (4.0-11.0)
[2021-07-08 09:58] LABS: ALBUMIN 1.7 g/dL (3.4-5.0); CALCIUM 8.4 mg/dL (8.5-10.1); CREATININE 1.8 mg/dL (0.6-1.0); POTASSIUM 3.4 mmol/L (3.5-5.1); TOTAL BILIRUBIN 0.5 mg/dL (0.2-1.0); TOTAL PROTEIN 6.2 g/dL (6.4-8.2)
[2021-07-08 10:16] LABS: ANISOCYTOSIS 2+
[2021-07-08 10:17] LABS: SCHISTOCYTES RARE
[2021-07-08 11:15] VITALS: BP 145/83
[2021-07-08 11:20] VITALS: BP 157/69
[2021-07-08 15:20] VITALS: BP 142/55
--- NOTE | 2021-07-09 01:11 | NUR ---
PT LYING IN BED. DILAUDID AND TRAMADOL PROVIDING PAIN RELIEF. SACRAL DRSG CHANGED. CURRENTLY RESTING COMFORTABLY. NO NEEDS VOICED. CALL LIGHT WITHIN REACH. FREQUENT OBSERVATION.
[2021-07-09 05:53] VITALS: BP 118/55
[2021-07-09 07:25] VITALS: BP 130/67
--- NOTE | 2021-07-09 10:18 | NUR ---
UPON MEDICATION ADMINISTRATION, PT WITH FLACC OF 8 PT GRIMACING, CRYING, TENSING, AND DIFFICULT TO CONSOLE. PT RECEIVING PRN IV DILAUDID Q3HR WITH PRN PO TRAMADOL Q6HR AVAILABLE. PT REMAINS ON ROOM AIR WITHOUT OBSERVATION OF DESATURATION OR SOB. PT RECEIVING DIALYSIS AT TIME OF ADMINISTRATION. PT CONTINUES TO EXPRESS UNRELIEVED PAIN, ASSIGNED NURSE TO BE NOTIFIED. FREQUENT MONITORING WILL CONTINUE.
[2021-07-09 11:20] VITALS: BP 151/73
[2021-07-09 15:45] VITALS: BP 130/63
--- NOTE | 2021-07-09 16:38 | NUR ---
PT VENT FIO2 302 TOLERATING SIMV WELL. PT C/O OF PAIN AND ANXIOUS. PT REPOSITIONED AND MEDS GIVEN NEED.PAIN IS ONLY PARTLIALLY MANAGED. PT REPOSITION Q2 FOR COMFORT.
--- NOTE | 2021-07-09 17:17 | NUR ---
faxed clinical update to [facility]. They have a call to RN to discuss patient.
--- NOTE | 2021-07-09 19:01 | NUR ---
PT VENT C/O OF PAIN. PAIN MED GIVEN PER ORDER, PT FS 63 1 AMP OF DESTROSE GIVEN WILL REPEAT FS..
[2021-07-09 19:46] VITALS: BP 135/46
[2021-07-10 06:28] LABS: ABSOLUTE NEUTROPHILS 7.7 thou/uL (1.4-8.2); BASOPHILS 0.5 % (0.0-2.0); HEMATOCRIT 21.6 % (37.0-47.0); HEMOGLOBIN 7.2 gm/dL (12.0-15.0); LYMPHOCYTES 6.2 % (24.0-44.0); MCH 30.5 pg (26.0-34.0); MCHC 33.2 g/dL (28.0-37.0); MCV 91.7 fL (80.0-100.0); MONOCYTES 7.6 % (1.0-8.0); PLATELET COUNT 124 thou/uL (150-400); POLYS 84.7 % (36.0-66.0); RBC 2.35 mil/uL (4.20-5.00)
[2021-07-10 06:42] LABS: ALBUMIN 1.5 g/dL (3.4-5.0); CREATININE 1.6 mg/dL (0.6-1.0); TOTAL BILIRUBIN 0.5 mg/dL (0.2-1.0); TOTAL PROTEIN 5.9 g/dL (6.4-8.2)
[2021-07-10 07:21] VITALS: BP 113/47
--- NOTE | 2021-07-10 07:36 | NUR ---
PT SLEPT MOST OF THE NIGHT AFTER BEING GIVEN PRN PAIN MEDICATION AND ZOFRAN. TOLERATING VENT WELL. VSS. TF VIA PEG TUBE. NO SIGNIFICANT CHANGES OVER NIGHT. REPORT GIVEN TO ONCOMING NURSE.
[2021-07-10 11:15] VITALS: BP 129/51
--- NOTE | 2021-07-10 12:47 | 2DMMODE ---
[address] [address] 2 D/M-MODE ECHOCARDIOGRAM Name: LISS TOLBERT Room #: 202-P ADM IN M.R.#: [id number] Admission: 06/05/21 Attend Phys: Triston Lee MD Discharge: Date of : 58 Report #: [id number] THIS REPORT FOR: cc: FAM - Family physician unknown FAM - Family physician unknown Ike Ordoñez MD [facility] ~ APPROVED REPORT Study performed: 07/10/2021 12:02:02 EXAM: Comprehensive 2D, Doppler, and color-flow Echocardiogram Patient Location: Bedside Room #: 202 Status: routine BSA: 1.76 HR: 63 bpm BP: 129/51 mmHg Rhythm: NSR Other Information Study Quality: Good Indications Aortic Valve Disease Atrial Fibrillation CAD Cardiomyopathy AVR, CABG Aortic Valve AoV Peak Case.: 2.94 m/s AO Peak Gr.: 34.53 mmHg Tricuspid Valve TR Peak Case.: 2.76 m/s TR Peak Gr.: 30.43 mmHg PA Pressure: 35.00 mmHg Left Ventricle The left ventricle is normal size. Borderline concentric left ventricular hypertrophy. Left ventricular systolic function is mildly decreased. LVEF is 40-45%. Right Ventricle [address] [address] 2 D/M-MODE ECHOCARDIOGRAM Name: LISS TOLBERT Room #: 202-P ADM IN ..#: [id number] Admission: 06/05/21 Attend Phys: Triston Lee MD Discharge: Date of : 58 Report #: [id number] The right ventricle is normal size. The right ventricular systolic function is normal. Atria Left atrium is dilated. Right atrium is at the upper limits of normal. Aortic Valve Bioprosthetic aortic valve is present. Trace aortic regurgitation. Mitral Valve The mitral valve is normal in structure. Mild mitral regurgitation. No evidence of mitral valve stenosis. Tricuspid Valve The tricuspid valve is normal in structure. There is mild tricuspid regurgitation. Estimated PAP 35 mmHg. There is mild pulmonary hypertension. Pulmonic Valve The pulmonary valve is normal in structure. Great Vessels The aortic root is normal in size. Pericardium There is no pericardial effusion. <Conclusion> Normal left ventricle size with borderline concentric hypertrophy Mild global hypokinesis ejection fraction 40-45% Normal right ventricle size/function Left atrium mildly dilated Trace aortic valve insufficiency Mild mitral valve insufficiency Mild tricuspid valve insufficiency Pulmonary systolic pressure estimated 35 mmHg No pericardial effusion Normal aortic root size. <ELECTRONICALLY SIGNED> By: Ike Ordoñez MD, [facility] 07/10/21 1246 [id number] [id number] Ike Ordoñez MD, FACC /INF
--- NOTE | 2021-07-10 13:39 | NUR ---
Pt has been on tube feed rate of 25ml/hr for past 6 days. Recommend advance to goal of 40-45ml/hr if hospitalist agrees.
--- NOTE | 2021-07-10 14:29 | NUR ---
TOOK OVER PATIENT CARE AT 1200. PATIENT RESTING IN BED AT THIS TIME WITH EXTREMITIES ELEVATED AND IN LOW AIR LOSS BED; REPOSITIONED PATIENT ON LEFT SIDE. PATIENT COMPLAINT OF GENERALIZED ABDOMINAL PAIN; PATIENT ABLE TO MOUTH WORDS SHE IS PAIN. PRN PAIN MEDICATION ADMINISTERED. PATIENT COMPLAINT OF FEELING ANXIOUS; ADMINISTERED PRN ANXIETY MEDICATION. TUBE FEEDING GOING AT 25/HR; PER DIETARY NOTE WOULD LIKE TO ADVANCE PATIENTS RATE TO 40-45/HR. CONTACT PRECAUTIONS MAINTAINED. VENT WEANING ATTEMPTED BY RESPIRATORY THERAPY; WAS TOLD THE WEANING WENT WELL. FALL PRECAUTIONS IN PLACE, CALL LIGHT WITHIN REACH.
[2021-07-10 15:22] VITALS: BP 128/55
--- NOTE | 2021-07-10 15:39 | NUR ---
Updated Zoe. Jena Respitory therapist at [facility] spoke with Sang Respitory therapist at [facility]. Danette at [facility] reports need to show vent weaning and documentation of vent weaning.
[2021-07-10 19:54] VITALS: BP 129/52
--- NOTE | 2021-07-11 04:24 | NUR ---
RECEIVED PATIENT AT 1900H.ON TRACHEOSTOMY CONNECTED TO MECHANICAL VENTILATOR AT 30% FIO2.WITH PEG WITH CONTINOUS FEED AND FLUSH EVERY 6 HOURS.WITH LEFT JUGULAR CENTRAL LINE INTACT.WITH DRAIN AT LEFT CHEST INTACT.WITH HAMILTON CATHTER INTACT DRAINING MINIMAL CONCENTRATED URINE.WITH COLOSTOMY INTACT.SACRAL DRESSING DONE ASEPTICALLY.ALL NEEDS ATTENDED.TO CONTINOUSLY MONITOR.
[2021-07-11 06:00] VITALS: BP 138/60
[2021-07-11 06:34] LABS: HEMATOCRIT 23.1 % (37.0-47.0); HEMOGLOBIN 7.5 gm/dL (12.0-15.0); MCH 30.1 pg (26.0-34.0); MCHC 32.7 g/dL (28.0-37.0); MCV 92.2 fL (80.0-100.0); RBC 2.51 mil/uL (4.20-5.00); RDW 21.5 % (10.5-14.5); WBC 8.9 thou/uL (4.0-11.0)
[2021-07-11 06:52] LABS: CALCIUM 8.6 mg/dL (8.5-10.1); CREATININE 2.1 mg/dL (0.6-1.0); POTASSIUM 3.5 mmol/L (3.5-5.1)
[2021-07-11 08:32] VITALS: BP 131/61
[2021-07-11 12:04] VITALS: BP 170/66
[2021-07-11 12:15] VITALS: BP 170/66
== END 2021-07-11 14:20 | DRG 853 ==
LOC: ER 06:19 → EROBS 07:43 → ICU 07:43 → 2N 06-26 16:30
PROVIDERS: Anesthesiology; Hospitalist; Internal Medicine Hematology & Oncology; Internal Medicine Pulmonary Disease; Nurse Practitioner Family; Pediatrics; Specialist; Student in an Organized Health Care Education/Training Program; Surgery; ADMIT Internal Medicine; ATTEND Internal Medicine
PROC: 5A1955Z Respiratory Ventilation, Greater than 96 Consecutive Hours (ICD-10-PCS; principal; 2021-06-05)
PROC: 0BH17EZ Insertion of Endotracheal Airway into Trachea, Via Natural or Artificial Opening (ICD-10-PCS; principal; 2021-06-05)
PROC: 02HV33Z Insertion of Infusion Device into Superior Vena Cava, Percutaneous Approach (ICD-10-PCS; principal; 2021-06-05)
PROC: B548ZZA Ultrasonography of Superior Vena Cava, Guidance (ICD-10-PCS; principal; 2021-06-05)
PROC: 03HY32Z Insertion of Monitoring Device into Upper Artery, Percutaneous Approach (ICD-10-PCS; principal; 2021-06-05)
PROC: 5A1D70Z Performance of Urinary Filtration, Intermittent, Less than 6 Hours Per Day (ICD-10-PCS; 2021-06-06)
PROC: 0JH63XZ Insertion of Tunneled Vascular Access Device into Chest Subcutaneous Tissue and Fascia, Percutaneous Approach (ICD-10-PCS; 2021-06-08)
PROC: 02HV33Z Insertion of Infusion Device into Superior Vena Cava, Percutaneous Approach (ICD-10-PCS; 2021-06-08)
PROC: 02HV33Z Insertion of Infusion Device into Superior Vena Cava, Percutaneous Approach (ICD-10-PCS; 2021-06-09)
PROC: B548ZZA Ultrasonography of Superior Vena Cava, Guidance (ICD-10-PCS; 2021-06-09)
PROC: 5A1D70Z Performance of Urinary Filtration, Intermittent, Less than 6 Hours Per Day (ICD-10-PCS; 2021-06-11)
PROC: 02HV33Z Insertion of Infusion Device into Superior Vena Cava, Percutaneous Approach (ICD-10-PCS; 2021-06-12)
PROC: 02PYX3Z Removal of Infusion Device from Great Vessel, External Approach (ICD-10-PCS; 2021-06-12)
PROC: 5A1D70Z Performance of Urinary Filtration, Intermittent, Less than 6 Hours Per Day (ICD-10-PCS; 2021-06-15)
PROC: 5A1D70Z Performance of Urinary Filtration, Intermittent, Less than 6 Hours Per Day (ICD-10-PCS; 2021-06-18)
PROC: B24BZZ4 Ultrasonography of Heart with Aorta, Transesophageal (ICD-10-PCS; 2021-06-19)
PROC: 5A1D70Z Performance of Urinary Filtration, Intermittent, Less than 6 Hours Per Day (ICD-10-PCS; 2021-06-20)
PROC: 5A1D70Z Performance of Urinary Filtration, Intermittent, Less than 6 Hours Per Day (ICD-10-PCS; 2021-06-22)
PROC: 0JH63XZ Insertion of Tunneled Vascular Access Device into Chest Subcutaneous Tissue and Fascia, Percutaneous Approach (ICD-10-PCS; 2021-06-25)
PROC: B5181ZA Fluoroscopy of Superior Vena Cava using Low Osmolar Contrast, Guidance (ICD-10-PCS; 2021-06-25)
PROC: 5A1D70Z Performance of Urinary Filtration, Intermittent, Less than 6 Hours Per Day (ICD-10-PCS; 2021-06-25)
PROC: 02HV33Z Insertion of Infusion Device into Superior Vena Cava, Percutaneous Approach (ICD-10-PCS; 2021-06-25)
PROC: B548ZZA Ultrasonography of Superior Vena Cava, Guidance (ICD-10-PCS; 2021-06-25)
PROC: 5A1D70Z Performance of Urinary Filtration, Intermittent, Less than 6 Hours Per Day (ICD-10-PCS; 2021-07-02)
PROC: 0QBS0ZZ Excision of Coccyx, Open Approach (ICD-10-PCS; 2021-07-03)
PROC: 0D1L0Z4 Bypass Transverse Colon to Cutaneous, Open Approach (ICD-10-PCS; 2021-07-03)
PROC: 0QB10ZZ Excision of Sacrum, Open Approach (ICD-10-PCS; 2021-07-03)
PROC: 5A1D70Z Performance of Urinary Filtration, Intermittent, Less than 6 Hours Per Day (ICD-10-PCS; 2021-07-04)
PROC: 5A1D70Z Performance of Urinary Filtration, Intermittent, Less than 6 Hours Per Day (ICD-10-PCS; 2021-07-06)
PROC: 5A1D70Z Performance of Urinary Filtration, Intermittent, Less than 6 Hours Per Day (ICD-10-PCS; 2021-07-11)
DX: B37.7 Candidal sepsis (principal); L89.154 Pressure ulcer of sacral region, stage 4; J96.21 Acute and chronic respiratory failure with hypoxia; N17.0 Acute kidney failure with tubular necrosis; R65.21 Severe sepsis with septic shock; J96.22 Acute and chronic respiratory failure with hypercapnia; N18.6 End stage renal disease; G92.8 Other toxic encephalopathy; K72.00 Acute and subacute hepatic failure without coma; J69.0 Pneumonitis due to inhalation of food and vomit; E43 Unspecified severe protein-calorie malnutrition; T83.518A Infection and inflammatory reaction due to other urinary catheter, initial encounter; D62 Acute posthemorrhagic anemia; I42.9 Cardiomyopathy, unspecified; I47.2 Ventricular tachycardia; S21.109A Unspecified open wound of unspecified front wall of thorax without penetration into thoracic cavity, initial encounter; I13.2 Hypertensive heart and chronic kidney disease with heart failure and with stage 5 chronic kidney disease, or end stage renal disease; A41.02 Sepsis due to Methicillin resistant Staphylococcus aureus; I46.9 Cardiac arrest, cause unspecified; R57.0 Cardiogenic shock; J44.9 Chronic obstructive pulmonary disease, unspecified; E78.5 Hyperlipidemia, unspecified; I25.10 Atherosclerotic heart disease of native coronary artery without angina pectoris; I50.9 Heart failure, unspecified; Z66 Do not resuscitate; Y83.8 Other surgical procedures as the cause of abnormal reaction of the patient, or of later complication, without mention of misadventure at the time of the procedure; S20.212A Contusion of left front wall of thorax, initial encounter; E10.51 Type 1 diabetes mellitus with diabetic peripheral angiopathy without gangrene; E03.9 Hypothyroidism, unspecified; L89.150 Pressure ulcer of sacral region, unstageable; R53.81 Other malaise; R15.9 Full incontinence of feces; B95.2 Enterococcus as the cause of diseases classified elsewhere; E10.22 Type 1 diabetes mellitus with diabetic chronic kidney disease; Z20.822 Contact with and (suspected) exposure to COVID-19; D69.6 Thrombocytopenia, unspecified; I48.0 Paroxysmal atrial fibrillation; X58.XXXA Exposure to other specified factors, initial encounter; Y93.89 Activity, other specified; Y92.89 Other specified places as the place of occurrence of the external cause; Y99.8 Other external cause status; Z88.6 Allergy status to analgesic agent; Z88.8 Allergy status to other drugs, medicaments and biological substances; Z95.1 Presence of aortocoronary bypass graft; Z93.1 Gastrostomy status; Z86.711 Personal history of pulmonary embolism
CPT/HCPCS: 10078; 10081; 10203; 27000; 32100; 50010; 50101; 50386; 50403; 57092; 57119; 57120; 62110; 62900; 70005; 85076